=== PATIENT | female | born 1945 | race Caucasian/White ===

== ENCOUNTER → 2016-04-09 | Outpatient (CLI) | payer MEDICARE ==
--- NOTE | 2016-04-10 12:03 | MM ---
Reason for exam: screening (asymptomatic). Last mammogram was performed 1 year ago. History: Patient is postmenopausal, history of other cancer, and had first child at age 31. Benign excisional biopsy of the left breast. Physical Findings: A clinical breast exam by your physician is recommended on an annual basis and results should be correlated with mammographic findings. MG 3D Screening Mammo W/Cad Bilateral CC and MLO view(s) were taken. Prior study comparison: April 06, 2015, right breast MG 3d work up w/cad RT. March 24, 2015, bilateral MG screening mammo w CAD. January 04, 2014, bilateral MG screening mammo w CAD. May 02, 2011, bilateral digital screening mammo w/CAD. There are scattered fibroglandular densities. A subtle asymmetry at an anterior to middle depth right CC view along the retroareolar plane appears more defined from older priors but has no correlate on the MLO view. A 6 month follow up is recommended. ASSESSMENT: Probably benign, BI-RAD 3 RECOMMENDATION: Follow-up diagnostic mammogram of the right breast in 6 months. RICK
== END | disposition home or self-care (01) ==
LOC: RADMAMWWP 13:45
PROVIDERS: ATTEND Family Medicine
DX: Z12.31 Encounter for screening mammogram for malignant neoplasm of breast (principal)
CPT/HCPCS: 77063; G0202

== ENCOUNTER → 2016-06-18 | Outpatient (CLI) | payer MEDICARE ==
--- NOTE | 2016-06-18 12:52 | US ---
EXAMINATION TYPE: US venous doppler duplex LE BI DATE OF EXAM: 06/18/2016 12:43 PM COMPARISON: NONE CLINICAL HISTORY: M79.662,M79.661Pain And R22.42,R22.41 Swelling. Right leg swelling, left ankle pain , no h/o dvt SIDE PERFORMED: Bilateral TECHNIQUE: The lower extremity deep venous system is examined utilizing real time linear array sonog elena with graded compression, doppler sonography and color-flow sonography. VESSELS IMAGED: External Iliac Vein (EIV) Common Femoral Vein Deep Femoral Vein Greater Saphenous Vein * Femoral Vein Popliteal Vein Small Saphenous Vein * Proximal Calf Veins (* superficial vessels) No popliteal fossa lesion is identified. Right Leg: Appears positive for thrombus from distal popiteal up through right proximal femoral vein , no flow seen, non compressible vessel Left Leg: Appears negative for DVT office phone service paging Dr Traore @[phone] IMPRESSION: 1. THIS EXAMINATION IS NEGATIVE FOR DVT WITHIN THE LEFT LEG. 2. THIS EXAMINATION IS POSITIVE FOR DVT EXTENDING FROM THE DEEP FEMORAL VEIN THROUGH TO THE POPLITEAL VEIN.
== END | disposition home or self-care (01) ==
LOC: RADUSWWP 12:09
PROVIDERS: ATTEND Internal Medicine Hematology & Oncology
DX: I82.411 Acute embolism and thrombosis of right femoral vein (principal); I82.431 Acute embolism and thrombosis of right popliteal vein; M79.662 Pain in left lower leg; R22.42 Localized swelling, mass and lump, left lower limb
CPT/HCPCS: 93970

== ENCOUNTER → 2016-11-19 | Outpatient (CLI) | payer MEDICARE ==
--- NOTE | 2016-11-19 14:40 | MM ---
Reason for exam: follow-up at short interval from prior study. Last mammogram was performed 7 months ago. History: Patient is postmenopausal, has history of other cancer at age 69, and had first child at age 31. Benign excisional biopsy of the left breast. Physical Findings: Nurse did not find any significant physical abnormalities on exam. MG 3D Diag Mammo W/Cad RT CC, MLO, and XCCL view(s) were taken of the right breast. Prior study comparison: April 09, 2016, bilateral MG 3d screening mammo w/cad. April 06, 2015, right breast MG 3d work up w/cad RT. There are scattered fibroglandular densities. Finding: There are typically benign round calcifications in the right breast. There is no discrete abnormality. These results were verbally communicated with the patient and result sheet given to the patient on 11/19/16. ASSESSMENT: Benign, BI-RAD 2 RECOMMENDATION: Return to routine screening mammogram schedule for both breasts. Back on schedule for March 2017.
== END | disposition home or self-care (01) ==
LOC: RADMAMWWP 13:33
PROVIDERS: ATTEND Family Medicine
DX: R92.8 Other abnormal and inconclusive findings on diagnostic imaging of breast (principal)
CPT/HCPCS: G0206; G0279

== ENCOUNTER 2016-12-26 07:50 | Day surgery (SDC) | payer MEDICARE ==
[2016-12-25 10:07] VITALS: BMI 48.4
[2016-12-26 08:38] VITALS: TEMP 97.8
[2016-12-26] MEDS: LACTATED RINGERS 1,000 ML IV SCH ×2 (08:38→08:50)
[2016-12-26] MEDS ORDERED: LIDOCAINE 1% 20 ML VIAL (10MG/ML) FOR IV START INTRADERMA ONE (08:38)
[2016-12-26 08:42] LABS: Glucose,Whole Blood 131 mg/dL (75-99)
[2016-12-26] MEDS ORDERED: PROPOFOL 10 MG/ML 20 ML VIAL IV ONE (08:56)
--- NOTE | 2016-12-26 09:11 | P.PCN ---
Date of Procedure: 12/26/16 Procedure(s) Performed: BRIEF HISTORY: Patient is a 71-year-old pleasant white female, scheduled for an elective colonoscopy as a part of surveillance of colon cancer diagnosed a year ago. She is status post right hemicolectomy followed by chemotherapy. PROCEDURE PERFORMED: Colonoscopy. PREOPERATIVE DIAGNOSIS: History of colon cancer diagnosed 1 year ago. IV sedation per Anesthesia. PROCEDURE: After informed consent was obtained, the patient, was brought into the endoscopy unit. IV sedation was administered by Anesthesia under continuous monitoring. Digital rectal examination was normal. Initially the Olympus CF- 160 flexible video colonoscope was then inserted in the rectum, gradually advanced into the right colon without any difficulty and the ileocolic anastomosis was visualized and appeared normal. The distal ileum appeared normal. The mucosa of ascending colon, transverse colon, descending colon, sigmoid colon, and rectum appeared normal. Retroflexion was performed in the rectum and no lesions were seen. The patient tolerated the procedure well. IMPRESSION: Normal colonoscopy with no evidence of colorectal neoplasia RECOMMENDATIONS: Findings of this examination were discussed with the patient as well as a family. She was advised to have a repeat surveillance colonoscopy in 2 years.
[2016-12-26 09:42] VITALS: BP 137/78; PULSE 59; RESP 18
== END 2016-12-26 09:49 | disposition home or self-care (01) ==
LOC: ORWHC2ENDO 07:50
PROVIDERS: ATTEND Internal Medicine Gastroenterology
DX: Z12.11 Encounter for screening for malignant neoplasm of colon (principal); I10 Essential (primary) hypertension; E78.5 Hyperlipidemia, unspecified; E11.9 Type 2 diabetes mellitus without complications; I48.91 Unspecified atrial fibrillation; Z85.038 Personal history of other malignant neoplasm of large intestine; Z88.1 Allergy status to other antibiotic agents; Z79.84 Long term (current) use of oral hypoglycemic drugs; Z79.01 Long term (current) use of anticoagulants; Z79.899 Other long term (current) drug therapy; Z92.21 Personal history of antineoplastic chemotherapy; Z98.0 Intestinal bypass and anastomosis status; Z90.49 Acquired absence of other specified parts of digestive tract
CPT/HCPCS: G0105; J2704

== ENCOUNTER 2017-09-09 14:51 | Emergency (ER) | payer MEDICARE ==
[2017-09-09 15:38] VITALS: RESP 18; TEMP 98.2
--- NOTE | 2017-09-09 15:51 | ED ---
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 She complained of no loss of consciousness nausea vomiting blurry vision she does complain of pain over the occipital parietal scalp on the left and some left lateral neck pain. She denies a loss of function to the upper or lower extremities. No other modifying factors. MD Complaint: head injury, head pain, other - Related Data Home Medications Medication Instructions Recorded Confirmed Atorvastatin Calcium [Lipitor] 20 mg PO DAILY 12/25/16 09/09/17 Cholecalciferol (Vitamin D3) 2,000 unit PO DAILY 12/25/16 09/09/17 [Vitamin D3] Ferrous Sulfate [Feosol] 325 mg PO DAILY 12/25/16 09/09/17 Losartan/Hydrochlorothiazide 1 tab PO DAILY 12/25/16 09/09/17 [Hyzaar 100-25 Tablet] Pioglitazone [Actos] 30 mg PO DAILY 12/25/16 09/09/17 Rivaroxaban [Xarelto] 20 mg PO DAILY 12/25/16 09/09/17 glipiZIDE [Glucotrol XL] 2.5 mg PO DAILY 12/25/16 09/09/17 metFORMIN HCL 1,000 mg PO DAILY 12/25/16 09/09/17 Thiamine [Vitamin B-1] 50 mg PO DAILY 09/09/17 09/09/17 Allergies/Adverse reactions: Allergies Allergy/AdvReac Type Severity Reaction Status Date / Time mycin antibiotics Allergy Rash/Hives Uncoded 09/09/17 15:38 Review of Systems ROS Statement: Those systems with pertinent positive or pertinent negative responses have been documented in the HPI. ROS Other: All systems not noted in ROS Statement are negative. Past Medical History Past Medical History: Cancer, Diabetes Mellitus, Hyperlipidemia, Hypertension Additional Past Medical History / Comment(s): loose bowel movement,colon CA -Chemo/no radiation History of Any Multi-Drug Resistant Organisms: None Reported Past Surgical History: Back Surgery, Bowel Resection, Section, Orthopedic Surgery Additional Past Surgical History / Comment(s): achilles tendon Past Anesthesia/Blood Transfusion Reactions: No Reported Reaction Past Psychological History: No Psychological Hx Reported Smoking Status: Never smoker Past Alcohol Use History: Rare Past Drug Use History: None Reported - Past Family History Mother Family Medical History: No Reported History Father Family Medical History: Myocardial Infarction ([place]) Sister(s) Additional Family Medical History / Comment(s): heart valve problems General Exam - General Exam Comments Initial Comments: This is a well-developed well-nourished awake alert oriented 3 female she does demonstrate a [place] Coma Scale of 15 Limitations: no limitations General appearance: alert Head exam: Present: normocephalic, other (Tennis palpation over the left parietal occipital scalp no step-off or crepitation no open wound seen. No ecchymosis seen at this time.) Eye exam: Present: normal appearance, PERRL, EOMI. Absent: scleral icterus, conjunctival injection, periorbital swelling ENT exam: Present: normal exam, mucous membranes moist Neck exam: Present: normal inspection, tenderness, full ROM. Absent: meningismus, lymphadenopathy, thyromegaly Respiratory exam: Present: normal lung sounds bilaterally. Absent: respiratory distress, wheezes, rales, rhonchi, stridor Cardiovascular Exam: Present: normal rhythm, bradycardia, normal heart sounds. Absent: systolic murmur, diastolic murmur, rubs, gallop, clicks GI/Abdominal exam: Present: soft, normal bowel sounds. Absent: distended, tenderness, guarding, rebound, rigid Extremities exam: Present: normal inspection, full ROM, normal capillary refill. Absent: tenderness, pedal edema, joint swelling, calf tenderness Back exam: Present: normal inspection Neurological exam: Present: alert, oriented X3, CN II-XII intact Psychiatric exam: Present: normal affect, normal mood Skin exam: Present: warm, dry, intact, normal color. Absent: rash Course Vital Signs 09/09/17 15:33 Temperature 98.2 F Pulse Rate 54 L Respiratory 18 Rate Blood Pressure 154/72 O2 Sat by Pulse 100 Oximetry Medical Decision Making - Medical Decision Making I did discuss findings with the patient and her . Patient does demonstrate scalp contusion and trapezius contusion no further workup is indicated at this time patient will be discharged and instructed use Tylenol which she has a home. Also ice for 24-48 hours. - Radiology Data Radiology results: report reviewed (I did review the imaging and reports no acute findings are seen.), image reviewed Disposition Clinical Impression: Contusion of scalp, Shoulder contusion Disposition: HOME SELF-CARE Condition: Good Additional Instructions: Ice 24-48 hours for 15-20 minutes at a time. [id number] Tylenol for pain. Is patient prescribed a controlled substance at d/c from ED?: No Referrals: Cam Singh MD [Primary Care Provider] - 1-2 days
--- NOTE | 2017-09-09 17:04 | CT ---
EXAMINATION TYPE: CT brain aura ross DATE OF EXAM: 09/09/2017 COMPARISON: None HISTORY: Head and neck pain after injury today. CT DLP: 1806 mGycm Automated exposure control for dose reduction was used. TECHNIQUE: CT scan of the head and cervical spine are performed without contrast. FINDINGS: There is mild cerebral cortical atrophy. There is no mass effect nor midline shift. There is no sign of intracranial hemorrhage. The calvarium is intact. Cervical vertebra have normal alignment. Disc spaces are fairly normal. There is mild spurring of the endplates. Skull base appears intact. IMPRESSION: Head CT scan is normal for age. Minor degenerative disc changes in the cervical spine. No fracture.
[2017-09-09 17:28] VITALS: BP 147/66; PULSE 51
== END 2017-09-09 17:28 | disposition home or self-care (01) ==
LOC: EC 14:51
DX: S00.03XA Contusion of scalp, initial encounter (principal); S40.012A Contusion of left shoulder, initial encounter; E11.9 Type 2 diabetes mellitus without complications; E78.5 Hyperlipidemia, unspecified; I10 Essential (primary) hypertension; Z88.1 Allergy status to other antibiotic agents; Z79.01 Long term (current) use of anticoagulants; Z79.84 Long term (current) use of oral hypoglycemic drugs; Z79.899 Other long term (current) drug therapy; W20.8XXA Other cause of strike by thrown, projected or falling object, initial encounter; Y92.002 Bathroom of unspecified non-institutional (private) residence as the place of occurrence of the external cause
CPT/HCPCS: 70450; 72125; 99283

== ENCOUNTER → 2018-01-24 | Outpatient (CLI) | payer MEDICARE ==
--- NOTE | 2018-01-24 17:34 | CT ---
EXAMINATION TYPE: CT ChestAbdPelvis w con DATE OF EXAM: 01/24/2018 INDICATION: Follow up colon Ca COMPARISON: No prior studies available at this location. CT DLP: 2066.9 mGycm CONTRAST: Performed with Oral Contrast and with IV Contrast, patient injected with 100 mL of Isovue 300. TECHNIQUE: Axial images at 5 mm thick sections. Reconstructed images in the coronal plane. Delayed images through the kidneys. FINDINGS: CT CHEST: Portion of the thyroid visualized is normal. No suspicious lung nodules or focal infiltrates are present. No enlarged mediastinal or hilar adenopathy is evident. The ascending aorta diameter at the level of the main pulmonary artery is 3.2 cm. The main pulmonary artery diameter at the bifurcation is 2.[address] ABDOMEN: Liver: Normal Spleen: Normal Pancreas: Mild atrophy is present. Adrenal glands: There is an enlarged nodule on the right adrenal gland measuring 2.4 cm. Left adrenal gland is normal. Gallbladder: Small gallstone is present. Kidneys: No masses are evident. No hydronephrosis is present. No cysts are present. Delayed images were obtained through the kidneys, which remain unremarkable. Aorta: Vascular calcification is within the aorta. Inferior vena cava: Normal. CT PELVIS: Pelvis is somewhat limited due to patient body habitus. Large periumbilical hernia measuring 5.7 cm is mesenteric fat extending into the periumbilical region s. No loops of bowel are involved. There is been a right hemicolectomy. The anastomosis appears widely patent. There are loops of bowel which are incompletely distended or lack oral contrast limiting their evaluation. Appendix: Surgically absent. Urinary bladder: Decompressed with limited evaluation. Genitourinary structures: Uterus appears normal. Adnexal regions are unremarkable. Osseous structures: No suspicious lytic or sclerotic lesions. Sacroiliac joint degenerative changes a re present. Facet hypertrophy is in the lower lumbar spine. IMPRESSIONS: 1. 2.4 cm right adrenal gland mass. Adenoma and metastasis within the differential. 2. Periumbilical mesenteric fat containing hernia. 3. Cholelithiasis
== END | disposition home or self-care (01) ==
LOC: RADCTMAIN 11:17
PROVIDERS: ATTEND Internal Medicine Hematology & Oncology
DX: K80.20 Calculus of gallbladder without cholecystitis without obstruction (principal); K42.9 Umbilical hernia without obstruction or gangrene; E27.8 Other specified disorders of adrenal gland; C18.0 Malignant neoplasm of cecum
CPT/HCPCS: 82565; 84520; 71260; 74177; 36415; Q9967

== ENCOUNTER → 2019-02-02 | Outpatient (CLI) | payer MEDICARE ==
--- NOTE | 2019-02-02 12:15 | CT ---
EXAMINATION TYPE: CT ChestAbdPelvis w con DATE OF EXAM: 02/02/2019 COMPARISON: 01/24/2018 HISTORY: Colon CA CT DLP: 3131.9 mGycm CONTRAST: CT scan of the chest, abdomen and pelvis is performed with Oral Contrast and with IV Contrast, patien t injected with 80 mL of Isovue 300. CT Chest: LUNGS: The lungs are clear and free of infiltrate or atelectasis. No pulmonary nodule or mass is det ected. No pleural effusion or CT evidence of interstitial lung disease. MEDIASTINUM: Thoracic aorta is of normal caliber. The heart is not enlarged. No evidence for media stinal mass or adenopathy. HILAR STRUCTURES: No evidence for mass. No hilar adenopathy is appreciated. OTHER: No significant abnormality. CONTRAST CT ABDOMEN AND PELVIS FINDINGS: LIVER/GB: Noted are couple of small gallstones within the gallbladder. No space occupying hepatic les ion. Biliary tree is of normal caliber. PANCREAS: No inflammation. No distinct mass. SPLEEN: No splenic enlargement. No lesion seen. ADRENALS: Right adrenal nodule measures 2.6 cm. Left adrenal gland is unremarkable. KIDNEYS/BLADDER: No hydronephrosis. No nephrolithiasis. No distinct renal mass. BOWEL: Partial right hemicolectomy noted. Anastomosis appears within normal limits. No recurrent mass seen. Normal bowel caliber. No inflammation. GENITAL ORGANS: No gross abnormality. LYMPH NODES: No greater than 1cm abdominal or pelvic lymph nodes are appreciated. AORTA: No significant abnormality. OSSEOUS STRUCTURES: Postoperative changes lumbar spine OTHER: No significant additional abnormality is seen. IMPRESSION: 1. Postoperative changes of right hemicolectomy without evidence for recurrent or residual mass. 2. Stable right adrenal nodule likely reflecting an adenoma.
== END ==
LOC: RADCTMAIN 09:10
PROVIDERS: ATTEND Internal Medicine Hematology & Oncology
DX: E27.8 Other specified disorders of adrenal gland (principal); Z90.49 Acquired absence of other specified parts of digestive tract; Z98.890 Other specified postprocedural states
CPT/HCPCS: 82565; 84520; 71260; 74177; 36415; Q9967 ×2

== ENCOUNTER 2019-06-09 06:20 | Emergency (ER) | payer MEDICARE ==
[2019-06-09] MEDS ORDERED: SODIUM CHLORIDE 0.9% 1,000 ML IV STA (06:44)
[2019-06-09] MEDS ORDERED: MORPHINE SULFATE 4 MG/ML SYRINGE IV STA (06:44)
[2019-06-09] MEDS ORDERED: ONDANSETRON 4 MG/2 ML VIAL IVP STA ×2 (06:44→07:25)
--- NOTE | 2019-06-09 06:46 | ED ---
Abdominal Pain HPI - General Chief Complaint: Abdominal Pain Stated Complaint: Abdominal pain Time Seen by Provider: 06/09/19 06:30 Source: patient, family, RN notes reviewed Mode of arrival: ambulatory Limitations: no limitations - History of Present Illness Initial Comments: This is a 73-year-old female presents emergency Department with chief complaint of right-sided flank pain. Patient states the pain started suddenly around 2 AM this morning. Patient states that the pain is intense nothing really makes it feel better or worse at this time she does admit to nausea and had an episode of emesis. She has no complaint of dysuria or hematuria. Patient states that she's had prior colon cancer with resection, chemotherapy for years ago. Jayden t states that she believes she had a kidney stone approximately 10+ years ago. Patient states that she never had any imaging because of pain resolved prior. Patient denies any fevers or chills no chest pain or shortness of breath. - Related Data Home Medications Medication Instructions Recorded Confirmed Atorvastatin Calcium [Lipitor] 20 mg PO DAILY 12/25/16 09/09/17 Cholecalciferol (Vitamin D3) 2,000 unit PO DAILY 12/25/16 09/09/17 [Vitamin D3] Ferrous Sulfate [Feosol] 325 mg PO DAILY 12/25/16 09/09/17 Losartan/Hydrochlorothiazide 1 tab PO DAILY 12/25/16 09/09/17 [Hyzaar 100-25 Tablet] Pioglitazone [Actos] 30 mg PO DAILY 12/25/16 09/09/17 Rivaroxaban [Xarelto] 20 mg PO DAILY 12/25/16 09/09/17 glipiZIDE [Glucotrol XL] 2.5 mg PO DAILY 12/25/16 09/09/17 metFORMIN HCL 1,000 mg PO DAILY 12/25/16 09/09/17 Thiamine [Vitamin B-1] 50 mg PO DAILY 09/09/17 09/09/17 Previous Rx's Medication Instructions Recorded Cephalexin [Keflex] 500 mg PO Q8HR #21 cap 06/09/19 Ondansetron Odt [Zofran Odt] 4 mg PO Q8HR PRN #14 tab 06/09/19 Tamsulosin [Flomax] 0.4 mg PO DAILY #7 cap 06/09/19 Allergies Allergy/AdvReac Type Severity Reaction Status Date / Time mycin antibiotics Allergy Rash/Hives Uncoded 09/09/17 15:38 Review of Systems ROS Statement: Those systems with pertinent positive or pertinent negative responses have been documented in the HPI. ROS Other: All systems not noted in ROS Statement are negative. Past Medical History Past Medical History: Cancer, Diabetes Mellitus, Hyperlipidemia, Hypertension Additional Past Medical History / Comment(s): loose bowel movement,colon CA 67-48-87-Chemo/no radiation History of Any Multi-Drug Resistant Organisms: None Reported Past Surgical History: Back Surgery, Bowel Resection, Section, Orthopedic Surgery Additional Past Surgical History / Comment(s): achilles tendon Past Anesthesia/Blood Transfusion Reactions: No Reported Reaction Past Psychological History: No Psychological Hx Reported Smoking Status: Never smoker Past Alcohol Use History: Rare Past Drug Use History: None Reported - Past Family History Mother Family Medical History: No Reported History Father Family Medical History: Myocardial Infarction ([place]) Sister(s) Additional Family Medical History / Comment(s): heart valve problems General Exam Limitations: no limitations General appearance: alert, in no apparent distress Head exam: Present: atraumatic, normocephalic, normal inspection Eye exam: Present: normal appearance, PERRL, EOMI. Absent: scleral icterus, con junctival injection, periorbital swelling Neck exam: Present: normal inspection. Absent: tenderness, meningismus, lymphadenopathy Respiratory exam: Present: normal lung sounds bilaterally. Absent: respiratory distress, wheezes, rales, rhonchi, stridor Cardiovascular Exam: Present: regular rate, normal rhythm, normal heart sounds. Absent: systolic murmur, diastolic murmur, rubs, gallop, clicks GI/Abdominal exam: Present: soft, tenderness (Mild right-sided), normal bowel sounds. Absent: distended, guarding, rebound, rigid Neurological exam: Present: alert, oriented X3, CN II-XII intact Skin exam: Present: warm, dry, intact, normal color. Absent: rash Course Vital Signs 06/09/19 06:26 Temperature 97.6 F Pulse Rate 50 L Respiratory 18 Rate Blood Pressure 156/66 O2 Sat by Pulse 98 Oximetry Medical Decision Making - Medical Decision Making 73-year-old female presents emergency from for flank pain. Patient's found to have 3 mm ureteral calculi. Patient pain is improved at this time. She was updated on CT results. Patient found to have some noted to be seizing a urinalysis was given Rocephin emergency department. Patient is afebrile no leukocytosis. Patient we discharged on antibiotics, antiemetics, pain control and Flomax. She'll follow-up with urology. Return parameters discussed. - Lab Data Result diagrams: 06/09/19 07:15 06/09/19 07:15 Lab Results 06/09/19 06/09/19 06/09/19 Range/Units 06:34 07:15 07:15 WBC 9.7 (3.8-10.6) k/uL RBC 4.12 (3.80-5.40) m/uL Hgb 11.9 (11.4-16.0) gm/dL Hct 39.1 (34.0-46.0) % MCV 94.9 (80.0-100.0) fL MCH 28.9 (25.0-35.0) pg MCHC 30.4 L (31.0-37.0) g/dL RDW 14.1 (11.5-15.5) % Plt Count 195 (150-450) k/uL Neutrophils % 82 % Lymphocytes % 11 % Monocytes % 5 % Eosinophils % 1 % Basophils % 0 % Neutrophils # 8.0 H (1.3-7.7) k/uL Lymphocytes # 1.1 (1.0-4.8) k/uL Monocytes # 0.5 (0-1.0) k/uL Eosinophils # 0.1 (0-0.7) k/uL Basophils # 0.0 (0-0.2) k/uL Sodium 139 (137-145) mmol/L Potassium 4.1 (3.5-5.1) mmol/L Chloride 107 (98-107) mmol/L Carbon Dioxide 22 (22-30) mmol/L Anion Gap 10 mmol/L BUN 29 H (7-17) mg/dL Creatinine 1.10 H (0.52-1.04) mg/dL Est GFR (CKD-EPI)AfAm 57 (>60 ml/min/1.73 sqM) Est GFR (CKD-EPI)NonAf 50 (>60 ml/min/1.73 sqM) Glucose 203 H (74-99) mg/dL Calcium 9.0 (8.4-10.2) mg/dL Total Bilirubin 0.6 (0.2-1.3) mg/dL AST 16 (14-36) U/L ALT 13 (4-34) U/L Alkaline Phosphatase 76 (38-126) U/L Total Protein 6.7 (6.3-8.2) g/dL Albumin 3.8 (3.5-5.0) g/dL Amylase 52 (30-110) U/L Lipase 116 (23-300) U/L Urine Color Dark Red Urine Appearance Bloody H (Clear) Urine RBC >182 H (0-5) /hpf Urine WBC >182 H (0-5) /hpf Urine WBC Clumps Moderate H (None) /hpf Urine Bacteria Many H (None) /hpf Urine Yeast (Budding) Moderate H (None) /hpf Disposition Clinical Impression: Right ureteral calculus, UTI (urinary tract infection) Disposition: HOME SELF-CARE Condition: Stable Instructions (If sedation given, give patient instructions): Kidney Stones (ED) Additional Instructions: Please follow up with urology.Please return to the Emergency Department if symptoms worsen or any other concerns. Prescriptions: Tamsulosin [Flomax] 0.4 mg PO DAILY #7 cap Cephalexin [Keflex] 500 mg PO Q8HR #21 cap Ondansetron Odt [Zofran Odt] 4 mg PO Q8HR PRN #14 tab PRN Reason: Nausea Is patient prescribed a controlled substance at d/c from ED?: No Referrals: Cam Singh MD [Primary Care Provider] - 1-2 days Regis Erazo MD [STAFF PHYSICIAN] - 1-2 days Time of Disposition: 08:13
--- NOTE | 2019-06-09 07:21 | CT ---
EXAMINATION TYPE: CT abdomen pelvis wo con DATE OF EXAM: 06/09/2019 COMPARISON: 02/02/2019 INDICATION: Rt sided pain DLP: 1614 mGycm, Automated exposure control for dose reduction was used. CONTRAST: 0 mL of Isovue 300. Study performed without Oral Contrast TECHNIQUE: Axial images were obtained from above the diaphragm to the pubic rami in the axial plane a t 5 mm thick sections. Reconstructed images are reviewed on the computer in the coronal plane. FINDINGS: Limited CT sections are obtained the lung bases. Some minimal infiltrate or atelectasis may be withi n the lingula.. CT ABDOMEN: Liver: Normal Spleen: Normal Pancreas: Slightly atrophic. Adrenal glands: Right adrenal gland is thickened on the superior limb measuring 2.2 cm. Left adrenal gland is normal. This can be evaluated with CT with contrast or MRI. Differential diagnosis could in clude adenoma and metastatic disease. Gallbladder: Gallstones are present. Kidneys: No masses are evident. No hydronephrosis is present. No cysts are present. Punctate calci fication within the superior posterior right kidney measuring 0.3 cm previous is nonobstructing. Righ t kidney is larger than the left kidney. There may be some mild right hydronephrosis. Very faint 0.3 similar calcification may be within the proximal right ureter. The distal ureter is unremarkable Aorta: Vascular calcification is within the aorta. Inferior vena cava: Normal. CT PELVIS: There is a large anterior abdominal wall hernia containing mesenteric fat in the periumbil ical region. Opening is 5.2 cm but does not contain any loops of bowel. Appears be a right hemicolectomy. The anastomosis is within the midabdomen. Study is without oral con trast limiting bowel evaluation. Mild diverticulosis without diverticulitis is within the sigmoid col on. Appendix: Not visualized. Urinary bladder: Normal , decompressed with some limited evaluation. Genitourinary structures: Uterus and adnexa appear normal. No free fluid is within the pelvis. Osseous structures: No suspicious lytic or sclerotic lesions. IMPRESSIONS: 1. 0.3 cm obstructing proximal right ureteral stone with mild right hydronephrosis. 2. An additional 0.3 cm nonobstructing renal stones present on the right. 3. Postsurgical changes within the bowel. 4. Nodule in right adrenal gland measuring 2.2 cm. This can be evaluated with CT with contrast or MRI .
[2019-06-09] MEDS ORDERED: KETOROLAC 30 MG/ML 1 ML VIAL IVP STA (07:25)
[2019-06-09 07:32] LABS: Bacteria,Urine Many /hpf; Budding Yeast,Urine Moderate /hpf
[2019-06-09 07:33] LABS: Appearance,Urine Bloody (Clear); Color,Urine Dark Red
[2019-06-09 07:34] LABS: RBC,Urine >182 /hpf (0-5); WBC,Urine >182 /hpf (0-5)
[2019-06-09] MEDS ORDERED: cefTRIAXone IN SWFI 1,000 MG/10 ML SYRINGE IVP STA (07:37)
[2019-06-09 07:43] LABS: Basophils % (A) 0 %; Eosinophils # (A) 0.1 k/uL (0-0.7); Eosinophils % (A) 1 %; HCT 39.1 % (34.0-46.0); HGB 11.9 gm/dL (11.4-16.0); Lymphocytes # (A) 1.1 k/uL (1.0-4.8); Lymphocytes % (A) 11 %; MCH 28.9 pg (25.0-35.0); MCHC 30.4 g/dL (31.0-37.0); MCV 94.9 fL (80.0-100.0); Mean Platelet Volume 8.8; Monocytes # (A) 0.5 k/uL (0-1.0); Monocytes % (A) 5 %; Neutrophils % (A) 82 %; Platelet Count 195 k/uL (150-450); RBC 4.12 m/uL (3.80-5.40); RDW 14.1 % (11.5-15.5); WBC 9.7 k/uL (3.8-10.6)
[2019-06-09 07:51] LABS: Albumin 3.8 g/dL (3.5-5.0); Potassium 4.1 mmol/L (3.5-5.1); Total Bilirubin 0.6 mg/dL (0.2-1.3); Total Protein 6.7 g/dL (6.3-8.2)
[2019-06-09] MEDS ORDERED: ACET/COD 300 MG/30 MG STARTER PACK 6 TAB BTL PO STA (08:11)
[2019-06-09 08:33] VITALS: BP 121/53; PULSE 56; RESP 16; TEMP 98
== END 2019-06-09 08:22 | disposition home or self-care (01) ==
LOC: EC 06:20
DX: N39.0 Urinary tract infection, site not specified (principal); N20.1 Calculus of ureter; E11.9 Type 2 diabetes mellitus without complications; E78.5 Hyperlipidemia, unspecified; I10 Essential (primary) hypertension; Z79.01 Long term (current) use of anticoagulants; Z79.84 Long term (current) use of oral hypoglycemic drugs; Z79.899 Other long term (current) drug therapy; Z88.1 Allergy status to other antibiotic agents; Z85.038 Personal history of other malignant neoplasm of large intestine; Z92.21 Personal history of antineoplastic chemotherapy; Z90.49 Acquired absence of other specified parts of digestive tract
CPT/HCPCS: 36415; 80053; 82150; 83690; 85025; 81001; 87086; 74176; 99284; 96374; 96375 ×3; 96376; 96361; J2270; J2405; J0696; J1885

== ENCOUNTER 2019-12-12 16:04 | Emergency (ER) | payer MEDICARE ==
[2019-12-12] MEDS ORDERED: SODIUM CHLORIDE 0.9% 1,000 ML IV STA (16:40)
--- NOTE | 2019-12-12 17:01 | ED ---
General Adult HPI - General Chief complaint: Urogenital Stated complaint: hematuria Time Seen by Provider: 12/12/19 16:19 Source: patient, RN notes reviewed Mode of arrival: ambulatory Limitations: no limitations - History of Present Illness Initial comments: 74-year-old female with a past medical history of colon cancer with last chemo treatment in 2016, diabetes mellitus, hyperlipidemia, hypertension, nephrolithiasis presents to the emergency room for a chief complaint of hematuria. Patient reports that she has had blood in her urine for one day. She notices this morning while going to the bathroom. Patient reports that she does take xarelto for a history of blood clots after chemo treatments. Patient denies any abdominal or back pain. Patient denies dysuria. Denies fevers or chills.Patient has no other complaints at this time including shortness of breath, chest pain, abdominal pain, nausea or vomiting, headache, or visual changes. - Related Data Home Medications Medication Instructions Recorded Confirmed Atorvastatin Calcium [Lipitor] 20 mg PO DAILY 12/25/16 09/09/17 Cholecalciferol (Vitamin D3) 2,000 unit PO DAILY 12/25/16 09/09/17 [Vitamin D3] Ferrous Sulfate [Feosol] 325 mg PO DAILY 12/25/16 09/09/17 Losartan/Hydrochlorothiazide 1 tab PO DAILY 12/25/16 09/09/17 [Hyzaar 100-25 Tablet] Pioglitazone [Actos] 30 mg PO DAILY 12/25/16 09/09/17 Rivaroxaban [Xarelto] 20 mg PO DAILY 12/25/16 09/09/17 glipiZIDE [Glucotrol XL] 2.5 mg PO DAILY 12/25/16 09/09/17 metFORMIN HCL 1,000 mg PO DAILY 12/25/16 09/09/17 Thiamine [Vitamin B-1] 50 mg PO DAILY 09/09/17 09/09/17 Previous Rx's Medication Instructions Recorded Cephalexin [Keflex] 500 mg PO Q8HR #21 cap 06/09/19 Ondansetron Odt [Zofran Odt] 4 mg PO Q8HR PRN #14 tab 06/09/19 Tamsulosin [Flomax] 0.4 mg PO DAILY #7 cap 06/09/19 Cephalexin [Keflex] 500 mg PO BID 7 Days #14 cap 12/12/19 Allergies Allergy/AdvReac Type Severity Reaction Status Date / Time mycin antibiotics Allergy Rash/Hives Uncoded 12/12/19 16:16 Review of Systems ROS Statement: Those systems with pertinent positive or pertinent negative responses have been documented in the HPI. ROS Other: All systems not noted in ROS Statement are negative. Past Medical History Past Medical History: Cancer, Diabetes Mellitus, Hyperlipidemia, Hypertension Additional Past Medical History / Comment(s): loose bowel movement,colon CA 12-16-15-Chemo/no radiation History of Any Multi-Drug Resistant Organisms: None Reported Past Surgical History: Back Surgery, Bowel Resection, Section, Ortho pedic Surgery Additional Past Surgical History / Comment(s): achilles tendon Past Anesthesia/Blood Transfusion Reactions: No Reported Reaction Past Psychological History: No Psychological Hx Reported Smoking Status: Never smoker Past Alcohol Use History: Rare Past Drug Use History: None Reported - Past Family History Mother Family Medical History: No Reported History Father Family Medical History: Myocardial Infarction ([place]) Sister(s) Additional Family Medical History / Comment(s): heart valve problems General Exam Limitations: no limitations General appearance: alert, in no apparent distress Head exam: Present: atraumatic, normocephalic, normal inspection Eye exam: Present: normal appearance, PERRL, EOMI. Absent: scleral icterus, conjunctival injection, periorbital swelling ENT exam: Present: normal exam, mucous membranes moist Neck exam: Present: normal inspection, full ROM. Absent: tenderness, meningismus, lymphadenopathy Respiratory exam: Present: normal lung sounds bilaterally. Absent: respiratory distress, wheezes, rales, rhonchi, stridor Cardiovascular Exam: Present: regular rate, normal rhythm, normal heart sounds. Absent: systolic murmur, diastolic murmur, rubs, gallop, clicks GI/Abdominal exam: Present: soft, normal bowel sounds. Absent: distended, tenderness, guarding, rebound, rigid Back exam: Absent: CVA tenderness (R), CVA tenderness (L) Neurological exam: Present: alert Course Vital Signs 12/12/19 12/12/19 16:09 18:23 Temperature 98.0 F 98.2 F Pulse Rate 66 71 Respiratory 20 18 Rate Blood Pressure 168/68 152/61 O2 Sat by Pulse 99 98 Oximetry Medical Decision Making - Medical Decision Making Vitals are stable. CBC unremarkable. CMP did show evidence of dehydration, patient was given fluids. Urinalysis does show mahsa hematuria. Patient does have 25 white cells and will be treated for possible urinary tract infection. CT abdomen and pelvis was unremarkable. No adverse change compared to old exam. However I did recommend urology follow-up for possible cystoscopy. Patient takes Xarelto for history of DVT 3 years ago after chemotherapy. I did recommend she hold this for 2 days and resume on Saturday. Patient already took dose today. I recommend that she follows up with primary care early in the week as well.I discussed this case with attending Dr. Park who agrees with this assessment and treatment plan. - Lab Data Result diagrams: 12/12/19 16:51 12/12/19 16:51 Lab Results 12/12/19 12/12/19 12/12/19 Range/Units 16:51 16:51 16:51 WBC 7.1 (3.8-10.6) k/uL RBC 3.90 (3.80-5.40) m/uL Hgb 11.6 (11.4-16.0) gm/dL Hct 36.7 (34.0-46.0) % MCV 94.2 (80.0-100.0) fL MCH 29.9 (25.0-35.0) pg MCHC 31.8 (31.0-37.0) g/dL RDW 13.8 (11.5-15.5) % Plt Count 184 (150-450) k/uL Neutrophils % 71 % Lymphocytes % 17 % Monocytes % 7 % Eosinophils % 2 % Basophils % 0 % Neutrophils # 5.0 (1.3-7.7) k/uL Lymphocytes # 1.2 (1.0-4.8) k/uL Monocytes # 0.5 (0-1.0) k/uL Eosinophils # 0.1 (0-0.7) k/uL Basophils # 0.0 (0-0.2) k/uL Hypochromasia Slight PT 10.5 (9.0-12.0) sec INR 1.0 (<1.2) APTT 27.3 (22.0-30.0) sec Sodium 138 (137-145) mmol/L Potassium 3.9 (3.5-5.1) mmol/L Chloride 109 H (98-107) mmol/L Carbon Dioxide 23 (22-30) mmol/L Anion Gap 6 mmol/L BUN 25 H (7-17) mg/dL Creatinine 0.99 (0.52-1.04) mg/dL Est GFR (CKD-EPI)AfAm 65 (>60 ml/min/1.73 sqM) Est GFR (CKD-EPI)NonAf 56 (>60 ml/min/1.73 sqM) Glucose 134 H (74-99) mg/dL Calcium 9.0 (8.4-10.2) mg/dL Total Bilirubin 0.7 (0.2-1.3) mg/dL AST 19 (14-36) U/L ALT 14 (4-34) U/L Alkaline Phosphatase 70 (38-126) U/L Total Protein 6.5 (6.3-8.2) g/dL Albumin 3.7 (3.5-5.0) g/dL Urine Color Urine Appearance (Clear) Urine pH (5.0-8.0) Ur Specific [place] (1.001-1.035) Urine Protein (Negative) Urine Glucose (UA) (Negative) Urine Ketones (Negative) Urine Blood (Negative) Urine Nitrite (Negative) Urine Bilirubin (Negative) Urine Urobilinogen (<2.0) mg/dL Ur Leukocyte Esterase (Negative) Urine RBC (0-5) /hpf Urine WBC (0-5) /hpf Hyaline Casts (0-2) /lpf Urine Mucus (None) /hpf 12/11/20 Range/Units 16:51 WBC (3.8-10.6) k/uL RBC (3.80-5.40) m/uL Hgb (11.4-16.0) gm/dL Hct (34.0-46.0) % MCV (80.0-100.0) fL MCH (25.0-35.0) pg MCHC (31.0-37.0) g/dL RDW (11.5-15.5) % Plt Count (150-450) k/uL Neutrophils % % Lymphocytes % % Monocytes % % Eosinophils % % Basophils % % Neutrophils # (1.3-7.7) k/uL Lymphocytes # (1.0-4.8) k/uL Monocytes # (0-1.0) k/uL Eosinophils # (0-0.7) k/uL Basophils # (0-0.2) k/uL Hypochromasia PT (9.0-12.0) sec INR (<1.2) APTT (22.0-30.0) sec Sodium (137-145) mmol/L Potassium (3.5-5.1) mmol/L Chloride (98-107) mmol/L Carbon Dioxide (22-30) mmol/L Anion Gap mmol/L BUN (7-17) mg/dL Creatinine (0.52-1.04) mg/dL Est GFR (CKD-EPI)AfAm (>60 ml/min/1.73 sqM) Est GFR (CKD-EPI)NonAf (>60 ml/min/1.73 sqM) Glucose (74-99) mg/dL Calcium (8.4-10.2) mg/dL Total Bilirubin (0.2-1.3) mg/dL AST (14-36) U/L ALT (4-34) U/L Alkaline Phosphatase (38-126) U/L Total Protein (6.3-8.2) g/dL Albumin (3.5-5.0) g/dL Urine Color Red Urine Appearance Turbid H (Clear) Urine pH 5.5 (5.0-8.0) Ur Specific [place] 1.019 (1.001-1.035) Urine Protein 2+ H (Negative) Urine Glucose (UA) Negative (Negative) Urine Ketones Negative (Negative) Urine Blood Large H (Negative) Urine Nitrite Negative (Negative) Urine Bilirubin Negative (Negative) Urine Urobilinogen <2.0 (<2.0) mg/dL Ur Leukocyte Esterase Small H (Negative) Urine RBC >182 H (0-5) /hpf Urine WBC 25 H (0-5) /hpf Hyaline Casts 30 H (0-2) /lpf Urine Mucus Rare H (None) /hpf Disposition Clinical Impression: Hematuria Disposition: HOME SELF-CARE Condition: Good Instructions (If sedation given, give patient instructions): Hematuria (ED) Additional Instructions: Please take antibiotic as directed. Please hold Xarelto Saturday and Saturday, resume Saturday. Please follow-up with your primary care provider. You should also follow up with urology, referral was given. If you're having worsening symptoms return to the emergency room. Prescriptions: Cephalexin [Keflex] 500 mg PO BID 7 Days #14 cap Is patient prescribed a controlled substance at d/c from ED?: No Referrals: Cam Singh MD [Primary Care Provider] - 1-2 days Parminder Santiago MD [STAFF PHYSICIAN] - 1-2 days Time of Disposition: 18:23
[2019-12-12 17:29] LABS: Basophils % (A) 0 %; Eosinophils # (A) 0.1 k/uL (0-0.7); Eosinophils % (A) 2 %; HCT 36.7 % (34.0-46.0); HGB 11.6 gm/dL (11.4-16.0); Hypochromasia Slight; Lymphocytes # (A) 1.2 k/uL (1.0-4.8); Lymphocytes % (A) 17 %; MCH 29.9 pg (25.0-35.0); MCHC 31.8 g/dL (31.0-37.0); MCV 94.2 fL (80.0-100.0); Mean Platelet Volume 8.1; Monocytes # (A) 0.5 k/uL (0-1.0); Monocytes % (A) 7 %; Neutrophils % (A) 71 %; Platelet Count 184 k/uL (150-450); RDW 13.8 % (11.5-15.5); WBC 7.1 k/uL (3.8-10.6)
[2019-12-12 17:34] LABS: Appearance,Urine Turbid (Clear); Bilirubin,Urine Negative (Negative); Blood,Urine Large (Negative); Color,Urine Red; Glucose,Urine (UA) Negative (Negative); Hyaline Casts,Urine 30 /lpf (0-2); Ketones,Urine Negative (Negative); Leukocyte Esterase,Urine Small (Negative); Mucus,Urine Rare /hpf; Nitrite,Urine Negative (Negative); PH, Urine 5.5 (5.0-8.0); Protein,Urine 2+ (Negative); RBC,Urine >182 /hpf (0-5); Specific Gravity,Urine 1.019 (1.001-1.035); Urobilinogen,Urine <2.0 mg/dL (<2.0); WBC,Urine 25 /hpf (0-5)
[2019-12-12 17:38] LABS: Partial Thromboplastin Time 27.3 sec (22.0-30.0); Prothrombin Time 10.5 sec (9.0-12.0)
--- NOTE | 2019-12-12 17:39 | CT ---
EXAMINATION TYPE: CT abdomen pelvis wo con DATE OF EXAM: 12/12/2019 COMPARISON: 06/09/2019 HISTORY: Hematuria. Hx colon ca CT DLP: 1975.2 mGycm Automated exposure control for dose reduction was used. There is no evidence of pleural effusion. Lung bases are clear of consolidation. Heart appears normal . There is small calcified gallstone. Liver shows no focal defect. The bile ducts are not dilated. Sple en is intact. There is no evidence of pancreatic mass. Stomach is intact. There is no adrenal mass. Kidneys have normal size. There is no hydronephrosis. Ureters are not dilat ed. There is no retroperitoneal adenopathy. Bladder distends smoothly. There is no inguinal hernia. T here is no free fluid in the pelvis. Uterus is anteverted. There is no evidence of a pelvic mass. There is no ascites. There is no free air. There is no evidence of bowel obstruction. There is large bowel surgery noted. There is broad-based umbilical hernia that contains fat. Unchanged. Lumbar vertebra have normal alignment. There is no compression fracture. There is laminectomy defect in the lower lumbar spine. The bony pelvis is intact. Hip joints are intact. IMPRESSION: Previous intestinal surgery. No bowel obstruction. Cholelithiasis. No adverse change compared to old exam. I do not see a cause for hematuria.
[2019-12-12 17:43] LABS: Albumin 3.7 g/dL (3.5-5.0); Potassium 3.9 mmol/L (3.5-5.1); Total Bilirubin 0.7 mg/dL (0.2-1.3)
[2019-12-12 17:57] LABS: Total Protein 6.5 g/dL (6.3-8.2)
[2019-12-12 18:24] VITALS: BP 152/61; PULSE 71; RESP 18; TEMP 98.2
[2019-12-12] MEDS ORDERED: CEPHALEXIN 500MG STARTER PACK 4 CAP BTL PO STA (18:28)
== END 2019-12-12 18:35 | disposition home or self-care (01) ==
LOC: EC 16:04
DX: R31.9 Hematuria, unspecified (principal); E86.0 Dehydration; I10 Essential (primary) hypertension; E11.9 Type 2 diabetes mellitus without complications; E78.5 Hyperlipidemia, unspecified; Z79.84 Long term (current) use of oral hypoglycemic drugs; Z79.899 Other long term (current) drug therapy; Z79.01 Long term (current) use of anticoagulants; Z88.1 Allergy status to other antibiotic agents; Z86.718 Personal history of other venous thrombosis and embolism; Z85.038 Personal history of other malignant neoplasm of large intestine; Z87.442 Personal history of urinary calculi; Z92.21 Personal history of antineoplastic chemotherapy
CPT/HCPCS: 36415; 74176; 80053; 81001; 85025; 85610; 85730; 87086; 96360; 99284

== ENCOUNTER 2019-12-26 09:58 | Emergency (ER) | payer MEDICARE ==
[2019-12-26 10:06] VITALS: RESP 18; TEMP 98.2
[2019-12-26] MEDS ORDERED: SODIUM CHLORIDE 0.9% 1,000 ML IV STA (10:13)
[2019-12-26] MEDS ORDERED: KETOROLAC 15 MG/ML 1 ML VIAL IVP STA (10:25)
[2019-12-26] MEDS ORDERED: ONDANSETRON 4 MG/2 ML VIAL IVP STA (10:25)
--- NOTE | 2019-12-26 10:28 | ED ---
Abdominal Pain HPI - General Chief Complaint: Abdominal Pain Stated Complaint: L Abd Pain Time Seen by Provider: 12/26/19 10:13 Source: patient Mode of arrival: ambulatory Limitations: no limitations - History of Present Illness Initial Comments: 74-year-old female history of colon cancer in remission, kidney stones currently on xarelto for a DVT that occurred after initial diagnosis of cancer presenting today for chief complaint of the left side pain. Patient states this morning after eating developed left side pain. States comes and goes in intensity and when it is at its peak she dry heaves, no vomiting, no hematemesis. Patient states she is cracked and diarrhea no changes she denies fevers denies dysuria urgency frequency. Patient states a week ago she had hematuria they started her on Keflex and scheduled a cystoscopy as she has no obvious kidney stone at that time on imaging studies. patient denies constipation, upper abdominal pain, chest pain, shortness of breath or indigestion. Patient states the pain radiates to the left side of the back. Patient denies additional complaints. She appears nontoxic on arrival. - Related Data Home Medications Medication Instructions Recorded Confirmed Atorvastatin Calcium [Lipitor] 20 mg PO DAILY 12/25/16 09/09/17 Cholecalciferol (Vitamin D3) 2,000 unit PO DAILY 12/25/16 09/09/17 [Vitamin D3] Ferrous Sulfate [Feosol] 325 mg PO DAILY 12/25/16 09/09/17 Losartan/Hydrochlorothiazide 1 tab PO DAILY 12/25/16 09/09/17 [Hyzaar 100-25 Tablet] Pioglitazone [Actos] 30 mg PO DAILY 12/25/16 09/09/17 Rivaroxaban [Xarelto] 20 mg PO DAILY 12/25/16 09/09/17 glipiZIDE [Glucotrol XL] 2.5 mg PO DAILY 12/25/16 09/09/17 metFORMIN HCL 1,000 mg PO DAILY 12/25/16 09/09/17 Thiamine [Vitamin B-1] 50 mg PO DAILY 09/09/17 09/09/17 Previous Rx's Medication Instructions Recorded Cephalexin [Keflex] 500 mg PO Q8HR #21 cap 06/09/19 Ondansetron Odt [Zofran Odt] 4 mg PO Q8HR PRN #14 tab 06/09/19 Tamsulosin [Flomax] 0.4 mg PO DAILY #7 cap 06/09/19 Cephalexin [Keflex] 500 mg PO BID 7 Days #14 cap 12/12/19 Sulfamethox-Tmp 800-160Mg [Bactrim 1 tab PO Q12HR 7 Days #14 tab 12/26/19 DS 800-160 mg] Allergies Allergy/AdvReac Type Severity Reaction Status Date / Time mycin antibiotics Allergy Rash/Hives Uncoded 12/26/19 10:06 Review of Systems ROS Statement: Those systems with pertinent positive or pertinent negative responses have been documented in the HPI. ROS Other: All systems not noted in ROS Statement are negative. Past Medical History Past Medical History: Cancer, Diabetes Mellitus, Hyperlipidemia, Hypertension Additional Past Medical History / Comment(s): loose bowel movement,colon CA 12-16-15-Chemo/no radiation History of Any Multi-Drug Resistant Organisms: None Reported Past Surgical History: Back Surgery, Bowel Resection, Section, Orthopedic Surgery Additional Past Surgical History / Comment(s): achilles tendon Past Anesthesia/Blood Transfusion Reactions: No Reported Reaction Past Psychological History: No Psychological Hx Reported Smoking Status: Never smoker Past Alcohol Use History: Rare Past Drug Use History: None Reported - Past Family History Mother Family Medical History: No Reported History Father Family Medical History: Myocardial Infarction ([place]) Sister(s) Additional Family Medical History / Comment(s): heart valve problems General Exam - General Exam Comments Initial Comments: General: The patient is awake and alert, in no distress Eye: Pupils are equal, round and reactive to light, extra-ocular movements are intact. No nystagmus. There is normal conjunctiva bilaterally. No signs of icterus. Neck: The neck is supple, there is no tenderness or JVD. Cardiovascular: There is a regular rate and rhythm. No murmur, rub or gallop is appreciated. Respiratory: Lungs are clear to auscultation, respirations are non-labored, breath sounds are equal. No wheezes, stridor, rales, or rhonchi. Gastrointestinal: Soft, non-distended, minimal to no tenderness to palpation of the LLQ/side of the abdomen, remaining abdomen nontender, abdomen without masses or organomegaly noted. There is no rebound or guarding present. No CVA tenderness. Musculoskeletal: Normal ROM, no tenderness. Strength 5/5. Sensation intact. Radial pulses equal bilaterally 2+. Neurological: A&O x 3. CN II-XII intact grossly, There are no obvious motor or sensory deficits. Coordination appears grossly intact. Speech is normal. Skin: Skin is warm and dry and no rashes or lesions are noted. Psychiatric: Cooperative, appropriate mood & affect, normal judgment. Limitations: no limitations Course Vital Signs 12/26/19 12/26/19 12/26/19 10:03 11:56 13:29 Temperature 98.2 F 98.2 F Pulse Rate 59 L 54 L 53 L Respiratory 18 18 18 Rate Blood Pressure 164/78 129/58 136/56 O2 Sat by Pulse 99 98 99 Oximetry Medical Decision Making - Medical Decision Making CT (-) WBC and RBC in urine. Finsished 1 week of keflex 1 week ago> patient nontoxic in appearance. pain resolved in the ER. Patient urine culture pending. Discussed case with attending and at this time we feel patient is stable for discharge with outpatient urology f/u, new antibiotics-return parameters for fevers, increasing pain, new symptoms. Patient discharged appearing well agreeable to care plan. - Lab Data Result diagrams: 12/26/19 10:38 12/26/19 10:38 Lab Results 12/26/19 12/26/19 12/26/19 Range/Units 10:38 10:38 10:38 WBC 6.8 (3.8-10.6) k/uL RBC 3.94 (3.80-5.40) m/uL Hgb 11.8 (11.4-16.0) gm/dL Hct 37.5 (34.0-46.0) % MCV 95.0 (80.0-100.0) fL MCH 29.8 (25.0-35.0) pg MCHC 31.4 (31.0-37.0) g/dL RDW 13.7 (11.5-15.5) % Plt Count 183 (150-450) k/uL Neutrophils % 78 % Lymphocytes % 12 % Monocytes % 6 % Eosinophils % 2 % Basophils % 1 % Neutrophils # 5.3 (1.3-7.7) k/uL Lymphocytes # 0.8 L (1.0-4.8) k/uL Monocytes # 0.4 (0-1.0) k/uL Eosinophils # 0.1 (0-0.7) k/uL Basophils # 0.1 (0-0.2) k/uL Hypochromasia Slight Sodium 137 (137-145) mmol/L Potassium 3.9 (3.5-5.1) mmol/L Chloride 107 (98-107) mmol/L Carbon Dioxide 22 (22-30) mmol/L Anion Gap 8 mmol/L BUN 27 H (7-17) mg/dL Creatinine 1.11 H (0.52-1.04) mg/dL Est GFR (CKD-EPI)AfAm 56 (>60 ml/min/1.73 sqM) Est GFR (CKD-EPI)NonAf 49 (>60 ml/min/1.73 sqM) Glucose 213 H (74-99) mg/dL Lactic Ac Sepsis Rflx Plasma Lactic Acid Nir (0.7-2.0) mmol/L Calcium 9.0 (8.4-10.2) mg/dL Total Bilirubin 0.8 (0.2-1.3) mg/dL AST 18 (14-36) U/L ALT 14 (4-34) U/L Alkaline Phosphatase 73 (38-126) U/L Total Protein 6.7 (6.3-8.2) g/dL Albumin 3.9 (3.5-5.0) g/dL Amylase 60 (30-110) U/L Lipase 149 (23-300) U/L Urine Color Red Urine Appearance Bloody H (Clear) Urine RBC >182 H (0-5) /hpf Urine WBC 38 H (0-5) /hpf Ur Squamous Epith Cells 3 (0-4) /hpf Urine Bacteria Few H (None) /hpf 12/26/19 12/26/19 Range/Units 10:38 10:58 WBC (3.8-10.6) k/uL RBC (3.80-5.40) m/uL Hgb (11.4-16.0) gm/dL Hct (34.0-46.0) % MCV (80.0-100.0) fL MCH (25.0-35.0) pg MCHC (31.0-37.0) g/dL RDW (11.5-15.5) % Plt Count (150-450) k/uL Neutrophils % % Lymphocytes % % Monocytes % % Eosinophils % % Basophils % % Neutrophils # (1.3-7.7) k/uL Lymphocytes # (1.0-4.8) k/uL Monocytes # (0-1.0) k/uL Eosinophils # (0-0.7) k/uL Basophils # (0-0.2) k/uL Hypochromasia Sodium (137-145) mmol/L Potassium (3.5-5.1) mmol/L Chloride (98-107) mmol/L Carbon Dioxide (22-30) mmol/L Anion Gap mmol/L BUN (7-17) mg/dL Creatinine (0.52-1.04) mg/dL Est GFR (CKD-EPI)AfAm (>60 ml/min/1.73 sqM) Est GFR (CKD-EPI)NonAf (>60 ml/min/1.73 sqM) Glucose (74-99) mg/dL Lactic Ac Sepsis Rflx Y Plasma Lactic Acid Nir 2.6 H* (0.7-2.0) mmol/L Calcium (8.4-10.2) mg/dL Total Bilirubin (0.2-1.3) mg/dL AST (14-36) U/L ALT (4-34) U/L Alkaline Phosphatase (38-126) U/L Total Protein (6.3-8.2) g/dL Albumin (3.5-5.0) g/dL Amylase (30-110) U/L Lipase (23-300) U/L Urine Color Urine Appearance (Clear) Urine RBC (0-5) /hpf Urine WBC (0-5) /hpf Ur Squamous Epith Cells (0-4) /hpf Urine Bacteria (None) /hpf Disposition Clinical Impression: Bacteria in urine, Blood in urine, Left flank pain Disposition: HOME SELF-CARE Condition: Good Instructions (If sedation given, give patient instructions): Urinary Tract Infection in Women (ED) Additional Instructions: Please use medication as discussed. Please follow-up with family doctor in the next 2 days, as well as urology. Please return to emergency room if the symptoms increase or worsen or for any other concerns. Prescriptions: Sulfamethox-Tmp 800-160Mg [Bactrim DS 800-160 mg] 1 tab PO Q12HR 7 Days #14 tab Is patient prescribed a controlled substance at d/c from ED?: No Referrals: Jose A Singh MD [STAFF PHYSICIAN] - 1-2 days Regis Erazo MD [STAFF PHYSICIAN] - 1-2 days Time of Disposition: 13:02
[2019-12-26 10:48] LABS: Basophils # (A) 0.1 k/uL (0-0.2); Basophils % (A) 1 %; Eosinophils # (A) 0.1 k/uL (0-0.7); Eosinophils % (A) 2 %; HCT 37.5 % (34.0-46.0); HGB 11.8 gm/dL (11.4-16.0); Hypochromasia Slight; Lymphocytes # (A) 0.8 k/uL (1.0-4.8); Lymphocytes % (A) 12 %; MCH 29.8 pg (25.0-35.0); MCHC 31.4 g/dL (31.0-37.0); Mean Platelet Volume 8.3; Monocytes # (A) 0.4 k/uL (0-1.0); Monocytes % (A) 6 %; Neutrophils # (A) 5.3 k/uL (1.3-7.7); Neutrophils % (A) 78 %; Platelet Count 183 k/uL (150-450); RBC 3.94 m/uL (3.80-5.40); RDW 13.7 % (11.5-15.5); WBC 6.8 k/uL (3.8-10.6)
[2019-12-26 10:58] LABS: Albumin 3.9 g/dL (3.5-5.0); Potassium 3.9 mmol/L (3.5-5.1); Total Bilirubin 0.8 mg/dL (0.2-1.3); Total Protein 6.7 g/dL (6.3-8.2)
[2019-12-26] MEDS ORDERED: SODIUM CHLORIDE 0.9% 1,000 ML IV ONE (10:58)
[2019-12-26 11:08] LABS: Appearance,Urine Bloody (Clear); Bacteria,Urine Few /hpf; Color,Urine Red; RBC,Urine >182 /hpf (0-5); Squamous Epithelial Cell,Urine 3 /hpf (0-4); WBC,Urine 38 /hpf (0-5)
[2019-12-26] MEDS ORDERED: cefTRIAXone IN SWFI 1,000 MG/10 ML SYRINGE IVP STA (11:27)
--- NOTE | 2019-12-26 12:45 | CT ---
EXAMINATION TYPE: CT abdomen pelvis w con DATE OF EXAM: 12/26/2019 COMPARISON: CT abdomen pelvis 12/12/2019. CT chest 01/24/2018. HISTORY: Lt sided pain, stone vs diverticulitis CT DLP: 2515 mGycm Automated exposure control for dose reduction was used. TECHNIQUE: Helical acquisition of images was performed from the lung bases through the pelvis. CONTRAST: Performed without Oral Contrast and with IV Contrast, patient injected with 100 mL of Isovue 300. FINDINGS: LUNG BASES: 3 mm solid pulmonary nodule of the right lower lobe unchanged versus 01/24/2018, most like ly benign. No pericardial or pleural effusion. LIVER: Normal. BILIARY SYSTEM: No intrahepatic or extrahepatic biliary ductal dilatation. Cholelithiasis. PANCREAS: Normal. SPLEEN: Normal. ADRENALS: Normal. KIDNEYS: No hydronephrosis or hydroureter bilaterally. There is mild nonspecific perinephric strandin g bilaterally. BOWEL: Right hemicolectomy postsurgical changes. No obstruction or thickening. No significant divert icular disease. PERITONEUM: No pneumoperitoneum. No free fluid. Umbilical fat-containing hernia. LYMPH NODES: No lymphadenopathy. PELVIS: Normal. VASCULATURE: No abdominal aortic aneurysm. MUSCULOSKELETAL: Degenerative changes of the spine. Laminectomy changes at L5. IMPRESSION: 1. No acute abdominopelvic process. No urolithiasis. No diverticular disease. 2. Cholelithiasis.
[2019-12-26 13:31] VITALS: BP 136/56; PULSE 53
== END 2019-12-26 13:31 | disposition home or self-care (01) ==
LOC: EC 09:58
DX: R82.71 Bacteriuria (principal); R31.9 Hematuria, unspecified; R10.32 Left lower quadrant pain; R19.7 Diarrhea, unspecified; E11.9 Type 2 diabetes mellitus without complications; E78.5 Hyperlipidemia, unspecified; I10 Essential (primary) hypertension; Z79.01 Long term (current) use of anticoagulants; Z79.84 Long term (current) use of oral hypoglycemic drugs; Z88.1 Allergy status to other antibiotic agents; Z79.899 Other long term (current) drug therapy; Z85.038 Personal history of other malignant neoplasm of large intestine; Z87.442 Personal history of urinary calculi; Z92.21 Personal history of antineoplastic chemotherapy; Z87.19 Personal history of other diseases of the digestive system; Z90.49 Acquired absence of other specified parts of digestive tract
CPT/HCPCS: 36415; 80053; 82150; 83605; 83690; 85025; 81001; 87086; 74177; 99284; 96374; 96375 ×2; 96361 ×3; J2405; J0696; J1885; Q9967

== ENCOUNTER 2020-11-30 11:10 | Emergency (ER) | payer MEDICARE ==
[2020-11-30] MEDS ORDERED: ONDANSETRON 4 MG/2 ML VIAL IVP STA (12:29)
[2020-11-30] MEDS ORDERED: KETOROLAC 15 MG/ML 1 ML VIAL IVP STA (12:29)
[2020-11-30] MEDS ORDERED: SODIUM CHLORIDE 0.9% 1,000 ML IV STA (12:29)
--- NOTE | 2020-11-30 12:37 | ED ---
General Adult HPI - General Chief complaint: Urogenital Stated complaint: Kidney stone Time Seen by Provider: 11/30/20 12:00 Source: patient, RN notes reviewed, old records reviewed Mode of arrival: wheelchair Limitations: no limitations - History of Present Illness Initial comments: This is a 74-year-old female presents emergency department with past medical history significant for kidney stones as well as colon cancer. Patient comes in today complaining of left-sided flank pain. Patient states is indicative of kidney stone she also blood in her urine yesterday. Patient states the pain does come and go. Patient states she has no dysuria. Patient denies any fever chills per patient states she is nauseated but hasn't vomited. Patient denies any chest pain difficulty breathing shortest breath. - Related Data Home Medications Medication Instructions Recorded Confirmed Atorvastatin Calcium [Lipitor] 20 mg PO DAILY 12/25/16 09/09/17 Cholecalciferol (Vitamin D3) 2,000 unit PO DAILY 12/25/16 09/09/17 [Vitamin D3] Ferrous Sulfate [Feosol] 325 mg PO DAILY 12/25/16 09/09/17 Losartan/Hydrochlorothiazide 1 tab PO DAILY 12/25/16 09/09/17 [Hyzaar 100-25 Tablet] Pioglitazone [Actos] 30 mg PO DAILY 12/25/16 09/09/17 Rivaroxaban [Xarelto] 20 mg PO DAILY 12/25/16 09/09/17 glipiZIDE [Glucotrol XL] 2.5 mg PO DAILY 12/25/16 09/09/17 metFORMIN HCL [Glucophage] 1,000 mg PO DAILY 12/25/16 09/09/17 Thiamine [Vitamin B-1] 50 mg PO DAILY 09/09/17 09/09/17 Previous Rx's Medication Instructions Recorded Cephalexin [Keflex] 500 mg PO Q8HR #21 cap 06/09/19 Ondansetron Odt [Zofran Odt] 4 mg PO Q8HR PRN #14 tab 06/09/19 Tamsulosin [Flomax] 0.4 mg PO DAILY #7 cap 06/09/19 Cephalexin [Keflex] 500 mg PO BID 7 Days #14 cap 12/12/19 Sulfamethox-Tmp 800-160Mg [Bactrim 1 tab PO Q12HR 7 Days #14 tab 12/26/19 DS 800-160 mg] Ketorolac [Toradol] 10 mg PO Q6HR #15 tab 11/30/20 Ondansetron [Zofran] 4 mg PO Q8HR PRN #10 tab 11/30/20 Tamsulosin [Flomax] 0.4 mg PO DAILY #10 cap 11/30/20 Allergies Allergy/AdvReac Type Severity Reaction Status Date / Time mycin antibiotics Allergy Rash/Hives Uncoded 11/30/20 11:28 Review of Systems ROS Statement: Those systems with pertinent positive or pertinent negative responses have been documented in the HPI. ROS Other: All systems not noted in ROS Statement are negative. Past Medical History Past Medical History: Cancer, Diabetes Mellitus, Hyperlipidemia, Hypertension Additional Past Medical History / Comment(s): loose bowel movement,colon CA 12-16-15-Chemo/no radiation History of Any Multi-Drug Resistant Organisms: None Reported Past Surgical History: Back Surgery, Bowel Resection, Section, Orthopedic Surgery Additional Past Surgical History / Comment(s): achilles tendon Past Anesthesia/Blood Transfusion Reactions: No Reported Reaction Past Psychological History: No Psychological Hx Reported Smoking Status: Never smoker Past Alcohol Use History: Rare Past Drug Use History: None Reported - Past Family History Mother Family Medical History: No Reported History Father Family Medical History: Myocardial Infarction ([place]) Sister(s) Additional Family Medical History / Comment(s): heart valve problems General Exam - General Exam Comments Initial Comments: GENERAL: Patient is well-developed and well-nourished. Patient is nontoxic and well- hydrated and is in mild distress. ENT: Neck is soft and supple. No significant lymphadenopathy is noted. Oropharynx is clear. Moist mucous membranes. Neck has full range of motion without eliciting any pain. EYES: The sclera were anicteric and conjunctiva were pink and moist. Extraocular movements were intact and pupils were equal round and reactive to light. Eyelids were unremarkable. PULMONARY: Unlabored respirations. Good breath sounds bilaterally. No audible rales rhonchi or wheezing was noted. CARDIOVASCULAR: There is a regular rate and rhythm without any murmurs gallops or rubs. ABDOMEN: Patient is somewhat tender in the left flank. Patient has no CVA tenderness patient has no suprapubic tenderness SKIN: Skin is clear with no lesions or rashes and otherwise unremarkable. NEUROLOGIC: Patient is alert and oriented x3. Cranial nerves II through XII are grossly intact. Motor and sensory are also intact. Normal speech, volume and content. Symmetrical smile. MUSCULOSKELETAL: Normal extremities with adequate strength and full range of motion. No lower extremity swelling or edema. No calf tenderness. LYMPHATICS: No significant lymphadenopathy is noted PSYCHIATRIC: Normal psychiatric evaluation. Limitations: no limitations Course Vital Signs 11/30/20 11:28 Temperature 97.5 F L Pulse Rate 55 L Respiratory 16 Rate Blood Pressure 161/100 O2 Sat by Pulse 98 Oximetry Medical Decision Making - Medical Decision Making CT scan showed a proximal left ureteral stone measuring 7-8 mm. Patient received Toradol and Zofran the emergency department and was feeling better but the pain started to come back so she was given 0.5 of Dilaudid. - Lab Data Result diagrams: 11/30/20 12:50 11/30/20 12:50 Lab Results 11/30/20 11/30/20 11/30/20 Range/Units 11:55 12:50 12:50 WBC 7.7 (3.8-10.6) k/uL RBC 3.80 (3.80-5.40) m/uL Hgb 11.3 L (11.4-16.0) gm/dL Hct 35.6 (34.0-46.0) % MCV 93.7 (80.0-100.0) fL MCH 29.6 (25.0-35.0) pg MCHC 31.6 (31.0-37.0) g/dL RDW 13.7 (11.5-15.5) % Plt Count 173 (150-450) k/uL MPV 8.6 Neutrophils % 78 % Lymphocytes % 12 % Monocytes % 8 % Eosinophils % 1 % Basophils % 0 % Neutrophils # 6.0 (1.3-7.7) k/uL Lymphocytes # 0.9 L (1.0-4.8) k/uL Monocytes # 0.6 (0-1.0) k/uL Eosinophils # 0.1 (0-0.7) k/uL Basophils # 0.0 (0-0.2) k/uL Sodium 137 (137-145) mmol/L Potassium 4.5 (3.5-5.1) mmol/L Chloride 108 H (98-107) mmol/L Carbon Dioxide 22 (22-30) mmol/L Anion Gap 7 mmol/L BUN 26 H (7-17) mg/dL Creatinine 1.65 H (0.52-1.04) mg/dL Est GFR (CKD-EPI)AfAm 35 (>60 ml/min/1.73 sqM) Est GFR (CKD-EPI)NonAf 30 (>60 ml/min/1.73 sqM) Glucose 129 H (74-99) mg/dL Calcium 9.3 (8.4-10.2) mg/dL Total Bilirubin 0.8 (0.2-1.3) mg/dL AST 19 (14-36) U/L ALT 13 (4-34) U/L Alkaline Phosphatase 85 (38-126) U/L Total Protein 6.3 (6.3-8.2) g/dL Albumin 3.6 (3.5-5.0) g/dL Amylase 49 (30-110) U/L Lipase 108 (23-300) U/L Urine Color Colorless Urine Appearance Clear (Clear) Urine pH 5.0 (5.0-8.0) Ur Specific [place] 1.005 (1.001-1.035) Urine Protein Negative (Negative) Urine Glucose (UA) Negative (Negative) Urine Ketones Negative (Negative) Urine Blood Moderate H (Negative) Urine Nitrite Negative (Negative) Urine Bilirubin Negative (Negative) Urine Urobilinogen <2.0 (<2.0) mg/dL Ur Leukocyte Esterase Negative (Negative) Urine RBC 1 (0-5) /hpf Urine WBC <1 (0-5) /hpf Ur Squamous Epith Cells 1 (0-4) /hpf Disposition Clinical Impression: Kidney stone on left side Disposition: HOME SELF-CARE Condition: Good Instructions (If sedation given, give patient instructions): Kidney Stones (ED), How to Strain Your Urine (ED) Prescriptions: Tamsulosin [Flomax] 0.4 mg PO DAILY #10 cap Ketorolac [Toradol] 10 mg PO Q6HR #15 tab Ondansetron [Zofran] 4 mg PO Q8HR PRN #10 tab PRN Reason: Nausea And Vomiting Is patient prescribed a controlled substance at d/c from ED?: No Referrals: Cam Singh MD [Primary Care Provider] - 1-2 days Time of Disposition: 16:00
[2020-11-30 12:38] LABS: Appearance,Urine Clear (Clear); Bilirubin,Urine Negative (Negative); Blood,Urine Moderate (Negative); Color,Urine Colorless; Glucose,Urine (UA) Negative (Negative); Ketones,Urine Negative (Negative); Leukocyte Esterase,Urine Negative (Negative); Nitrite,Urine Negative (Negative); Protein,Urine Negative (Negative); RBC,Urine 1 /hpf (0-5); Specific Gravity,Urine 1.005 (1.001-1.035); Squamous Epithelial Cell,Urine 1 /hpf (0-4); Urobilinogen,Urine <2.0 mg/dL (<2.0); WBC,Urine <1 /hpf (0-5)
[2020-11-30 13:12] LABS: Basophils % (A) 0 %; Eosinophils # (A) 0.1 k/uL (0-0.7); Eosinophils % (A) 1 %; HCT 35.6 % (34.0-46.0); HGB 11.3 gm/dL (11.4-16.0); Lymphocytes # (A) 0.9 k/uL (1.0-4.8); Lymphocytes % (A) 12 %; MCH 29.6 pg (25.0-35.0); MCHC 31.6 g/dL (31.0-37.0); MCV 93.7 fL (80.0-100.0); Mean Platelet Volume 8.6; Monocytes # (A) 0.6 k/uL (0-1.0); Monocytes % (A) 8 %; Neutrophils % (A) 78 %; Platelet Count 173 k/uL (150-450); RDW 13.7 % (11.5-15.5); WBC 7.7 k/uL (3.8-10.6)
[2020-11-30 13:17] LABS: Albumin 3.6 g/dL (3.5-5.0); Calcium 9.3 mg/dL (8.4-10.2); Potassium 4.5 mmol/L (3.5-5.1); Total Bilirubin 0.8 mg/dL (0.2-1.3); Total Protein 6.3 g/dL (6.3-8.2)
--- NOTE | 2020-11-30 13:35 | XR ---
EXAMINATION TYPE: XR KUB DATE OF EXAM: 11/30/2020 COMPARISON: NONE HISTORY: 11/30/2020 TECHNIQUE: One view abdominal series FINDINGS: The osseous structures are intact. The bowel gas pattern is nonspecific. Lung bases are clear. Hype rtrophic change of the spine. Arthropathy of the hips. IMPRESSION: 1. Nonspecific abdomen.
--- NOTE | 2020-11-30 13:43 | CT ---
EXAMINATION TYPE: CT abdomen pelvis wo con DATE OF EXAM: 11/30/2020 COMPARISON: CT 12/26/2019 HISTORY: Abdominal pain CT DLP: 1656 mGycm Automated exposure control for dose reduction was used. TECHNIQUE: Helical acquisition of images from the lung bases through the pelvis. FINDINGS: Lack of intravenous contrast could compromise sensitivity of the gadolinium. There is a sma ll hiatal hernia present. LUNG BASES: No significant abnormality is appreciated. AORTA: No atheromatous changes present. No evident aneurysm.. LIVER/GB: Dependent high density within the gallbladder is consistent with stones, liver shows no mas s. PANCREAS: No significant abnormality is seen. SPLEEN: No significant abnormality is seen. ADRENALS: Dense right adrenal mass is stable measuring approximately 2.9 cm, there is low attenuation , left adrenal gland is normal KIDNEYS: There is mild left-sided hydronephrosis, proximal left ureteral calculus is present measurin g 7 to 8 mm. There is some nonobstructive calculi present at the lower pole of the left kidney which have developed in the interval. No ureteral calcification on the right, no hydronephrosis on the righ t. REPRODUCTIVE ORGANS: No significant abnormality is seen. URINARY BLADDER: No significant abnormality is seen. BOWEL: Scattered diverticular change is noted. Postop changes are also noted to the bowel. FREE AIR: No Free Air is visible. ASCITES: None visible. PELVIC ADENOPATHY: None visualized. RETROPERITONEAL ADENOPATHY: No Retroperitoneal Adenopathy visible. OSSEOUS STRUCTURES: Degenerative disc changes, facet arthropathy noted especially in the lower lumba r spine. IMPRESSION: OBSTRUCTIVE PROXIMAL LEFT RENAL CALCULUS. CHOLELITHIASIS. NONCONTRAST EXAM.
[2020-11-30] MEDS ORDERED: ACET/COD 300 MG/30 MG STARTER PACK 6 TAB BTL PO STA (16:02)
[2020-11-30] MEDS ORDERED: HYDROmorphone 0.5 MG/0.5 ML SYRINGE IVP STA (16:07)
[2020-11-30 16:53] VITALS: BP 150/89; PULSE 58; RESP 18; TEMP 97.7
== END 2020-11-30 16:40 | disposition home or self-care (01) ==
LOC: EC 11:10
DX: N20.0 Calculus of kidney (principal); I10 Essential (primary) hypertension; E78.5 Hyperlipidemia, unspecified; E11.9 Type 2 diabetes mellitus without complications; Z88.1 Allergy status to other antibiotic agents; Z85.038 Personal history of other malignant neoplasm of large intestine
CPT/HCPCS: 99284; 96374; 96375 ×2; 96361; 36415; 80053; 82150; 83690; 85025; 81001; 74018; 74176; J2405; J1885; J1170

== ENCOUNTER 2020-12-05 13:07 | Day surgery (SDC) | payer MEDICARE ==
[2020-12-02 13:53] VITALS: BMI 51.7
[2020-12-05 13:45] LABS: Glucose,Whole Blood 135 mg/dL (75-99)
[2020-12-05] MEDS ORDERED: ONDANSETRON 4 MG/2 ML VIAL ONE (13:49)
[2020-12-05] MEDS ORDERED: LIDOCAINE 1% (10MG/ML) FOR IV START INTRADERMA ONE (13:51)
[2020-12-05] MEDS ORDERED: LACTATED RINGERS 1,000 ML IV ONE (13:51)
[2020-12-05] MEDS ORDERED: DEXAMETHASONE SOD PHOSPHATE 4 MG/ML 1 ML VIAL IV ONE (13:51)
--- NOTE | 2020-12-05 14:59 | P.HPIHPCON ---
History of Present Illness H&P Date: 12/05/20 Chief Complaint: Left-sided ureteral stone This is a 75-year-old female with history of 7 mm left-sided proximal stone. She is symptomatic from her stone. Of note stone is radiolucent. Discussed with her the option of ureteroscopy. Discussed with her the risk which includes but not limited to bleeding, infection, injury to the ureter. Discussed also risk from anesthesia. She understood all the risk and agreed to proceed Consent for Procedure: I have explained the operation/procedure to the patient, including the risks, benefits, side effects, alternative therapies (including not receiving the proposed treatment or service), the likelihood of the patient achieving his/her goals, and potential recuperation problems for the procedure/sedation/analgesia, as well as any blood products, if indicated. I also explained to the patient the risks, benefits and side effects of the alternatives, as well as the risks related to not receiving the proposed procedure, care, treatment, or services. Past Medical History Past Medical History: Cancer, Diabetes Mellitus, Hyperlipidemia, Hypertension Additional Past Medical History / Comment(s): loose bowel movement,colon [place] 12-16-15-Chemo/no radiation, hx kidney stones History of Any Multi-Drug Resistant Organisms: None Reported Past Surgical History: Back Surgery, Bowel Resection, Section, Orthopedic Surgery Additional Past Surgical History / Comment(s): achilles tendon Past Anesthesia/Blood Transfusion Reactions: No Reported Reaction Smoking Status: Never smoker - Past Family History Mother Family Medical History: No Reported History Father Family Medical History: Myocardial Infarction ([place]) Sister(s) Additional Family Medical History / Comment(s): heart valve problems Medications and Allergies Home Medications Medication Instructions Recorded Confirmed Type Atorvastatin Calcium [Lipitor] 20 mg PO DAILY 12/25/16 12/02/20 History Cholecalciferol (Vitamin D3) 2,000 unit PO DAILY 12/25/16 12/02/20 History [Vitamin D3] Ferrous Sulfate [Feosol] 325 mg PO DAILY 12/25/16 12/02/20 History Losartan/Hydrochlorothiazide 1 tab PO DAILY 12/25/16 12/02/20 History [Hyzaar 100-25 Tablet] Pioglitazone [Actos] 30 mg PO DAILY 12/25/16 12/02/20 History Rivaroxaban [Xarelto] 10 mg PO DAILY 12/25/16 12/02/20 History glipiZIDE [Glucotrol XL] 2.5 mg PO DAILY 12/25/16 12/02/20 History metFORMIN HCL [Glucophage] 1,000 mg PO DAILY 12/25/16 12/02/20 History Thiamine [Vitamin B-1] 50 mg PO DAILY 09/09/17 12/02/20 History Ondansetron Odt [Zofran Odt] 4 mg PO Q8HR PRN #14 tab 06/09/19 12/02/20 Rx Ketorolac [Toradol] 10 mg PO Q6HR #15 tab 11/30/20 12/02/20 Rx Tamsulosin [Flomax] 0.4 mg PO DAILY #10 cap 11/30/20 12/02/20 Rx Turmeric Root Extract [Turmeric] 500 mg PO DAILY 12/02/20 12/02/20 History Acetaminophen [Tylenol] 1,000 mg PO ONCE PRN 12/05/20 12/05/20 History Allergies Allergy/AdvReac Type Severity Reaction Status Date / Time mycin antibiotics Allergy Rash/Hives Uncoded 12/05/20 13:29 Surgical - Exam Vital Signs Temp Pulse Resp BP Pulse Ox 97 F L 65 16 185/74 97 12/05/20 13:34 12/05/20 13:34 12/05/20 13:34 12/05/20 13:34 12/05/20 13:34 - General well developed, well nourished, no distress, moderate pain - Eyes PERRL, normal ocular movement - ENT normal nares, normal mucosa - Respiratory normal expansion, normal respiratory effort - Abdomen Abdomen: soft, non tender Results - Labs Abnormal Lab Results - Last 24 Hours (Table) 12/05/20 Range/Units 13:43 POC Glucose (mg/dL) 135 H (75-99) mg/dL Assessment and Plan Assessment: 75 yo female with hx 7 mm left sided ureteral stone -OR for left sided ureteroscopy with holmium laser and stent placement
[2020-12-05] MEDS ORDERED: fentaNYL (PF) 50 MCG/ML 2 ML AMP ONE (15:02)
[2020-12-05] MEDS ORDERED: SUCCINYLCHOLINE CHLORIDE 100 MG/5 ML SYR IV ONE (15:02)
[2020-12-05] MEDS ORDERED: MIDAZOLAM 2 MG/2 ML VIAL ONE (15:02)
[2020-12-05] MEDS ORDERED: LIDOCAINE 1% INJ 10MG/ML (20 ML MDV) ONE (15:02)
[2020-12-05] MEDS ORDERED: PROPOFOL 10 MG/ML 20 ML VIAL IV ONE (15:02)
[2020-12-05] MEDS ORDERED: GLYCOPYRROLATE 0.2 MG/ML 2 ML VIAL ONE (15:02)
[2020-12-05] MEDS ORDERED: NEOSTIGMINE 1 MG/ML 10 ML VIAL ONE (15:02)
[2020-12-05] MEDS ORDERED: ROCURONIUM 10 MG/ML (5 ML VIAL) IV ONE (15:02)
[2020-12-05] MEDS ORDERED: IOHEXOL 350 MG/ML 50 ML in EMPTY BAG 1 BAG IRRIGATION ONE (15:38)
[2020-12-05 16:28] VITALS: TEMP 98.2
--- NOTE | 2020-12-05 16:31 | P.OP ---
Date of Procedure: 12/05/20 Preoperative Diagnosis: Left ureteral stone Postoperative Diagnosis: Same Procedure(s) Performed: Left ureteroscopy, holmium laser lithotripsy, stone basketing, retrograde pyelogram and stent insertion Implants: 6-Omani by 24 cm stent in the left ureter left on a string Anesthesia: ARLETTE Surgeon: Parminder Santiago Estimated Blood Loss (ml): 2 Pathology: other (left ureteral stone) Condition: stable Disposition: PACU Indications for Procedure: This is a 75-year-old female with history of 7 mm left-sided proximal stone. She is symptomatic from her stone. Of note stone is radiolucent. Discussed with her the option of ureteroscopy. Discussed with her the risk which includes but not limited to bleeding, infection, injury to the ureter. Discussed also risk from anesthesia. She understood all the risk and agreed to proceed Operative Findings: Left proximal ureteral stone, an additional stone within the lower calyx Description of Procedure: Patient was brought to the operating room, general anesthesia was induced. She was prepped and draped in sterile fashion and placed in dorsal lithotomy position. Cystoscopy fitted with a 21-Omani sheath was inserted per urethra, cystoscopy was performed which showed no abnormality within the bladder. Attention was then carried to the left ureteral orifice which was intubated with an open-ended catheter, retrograde pyelogram was performed which showed a filling defect within the proximal ureter with hydronephrosis. Next a sensor wire was advanced through the catheter and the catheter was removed with the wire in place. Under fluoroscopy 1113 O[place]i access sheath was passed into the proximal ureter. Next a flexible ureteroscope was inserted through the access sheath, large stone was encountered in the proximal ureter. Using the holmium laser the stone was fragmented into small fragments, sizable fragments were removed using the stone basket. Next the flexibile ureteroscope was advanced into the kidney, and additional stone was seen in the lower calyx which was dusted. Of note the most lower calyx could not be visualized given the acute angle of the calyx. Repeat renoscopy showed no additional stones or injury to the kidney. Pullback ureteroscopy was performed showed no sizable fragments or injury to the ureter. as the ureteroscope was withdrawn a sensor wire was advanced through. Next a ureteral stent was passed over the wire, the proximal curl was visualized on fluoroscopy and the distal curl was visualized using the cystoscope. The stent was left on a string and taped to the patient's left thigh. The bladder was emptied at the end of the case. Patient tolerated the procedure well was taken to PACU in stable condition
[2020-12-05] MEDS ORDERED: hydrALAZINE HCL 20 MG/ML 1 ML VIAL IVP ONE (16:49)
[2020-12-05] MEDS ORDERED: hydrALAZINE HCL 20 MG/ML 1 ML VIAL ONE (16:51)
[2020-12-05 17:18] VITALS: RESP 16
[2020-12-05 18:35] VITALS: BP 141/74; PULSE 67
--- NOTE | 2020-12-06 10:01 | FL ---
EXAMINATION TYPE: FL urography retrograde DATE OF EXAM: 12/05/2020 COMPARISON: NONE HISTORY: Fluoroscopy time. Fluoroscopy was provided to the referring clinician.
== END 2020-12-05 18:42 | disposition home or self-care (01) ==
LOC: OR 13:07
PROVIDERS: ATTEND Urology
DX: N20.1 Calculus of ureter (principal)
CPT/HCPCS: 52356; 82365; 74420; C2625; C1758; C1769; J2250; J0360; J1100; J2710; J0690; J2405; J2001; J3010; J0330; J2704; Q9967

== ENCOUNTER 2020-12-14 15:42 | Emergency (ER) | payer MEDICARE ==
[2020-12-14] MEDS ORDERED: SODIUM CHLORIDE 0.9% 1,000 ML IV STA (18:14)
[2020-12-14] MEDS ORDERED: ACETAMINOPHEN TAB 500 MG TAB PO STA (18:15)
[2020-12-14 18:53] LABS: Basophils % (A) 0 %; Eosinophils # (A) 0.1 k/uL (0-0.7); Eosinophils % (A) 1 %; HCT 34.5 % (34.0-46.0); HGB 10.7 gm/dL (11.4-16.0); Lymphocytes # (A) 0.7 k/uL (1.0-4.8); Lymphocytes % (A) 6 %; MCH 28.9 pg (25.0-35.0); MCHC 31.1 g/dL (31.0-37.0); MCV 92.8 fL (80.0-100.0); Mean Platelet Volume 8.1; Monocytes # (A) 0.5 k/uL (0-1.0); Monocytes % (A) 5 %; Neutrophils # (A) 9.8 k/uL (1.3-7.7); Neutrophils % (A) 87 %; Platelet Count 204 k/uL (150-450); RBC 3.71 m/uL (3.80-5.40); RDW 13.5 % (11.5-15.5); WBC 11.2 k/uL (3.8-10.6)
[2020-12-14 19:00] LABS: Appearance,Urine Cloudy (Clear); Bilirubin,Urine Negative (Negative); Blood,Urine Trace (Negative); Color,Urine Yellow; Glucose,Urine (UA) Negative (Negative); Ketones,Urine Negative (Negative); Leukocyte Esterase,Urine Moderate (Negative); Mucus,Urine Rare /hpf; Nitrite,Urine Negative (Negative); Protein,Urine Trace (Negative); RBC,Urine 2 /hpf (0-5); Specific Gravity,Urine 1.012 (1.001-1.035); Squamous Epithelial Cell,Urine 1 /hpf (0-4); Urobilinogen,Urine <2.0 mg/dL (<2.0); WBC,Urine 25 /hpf (0-5)
[2020-12-14 19:16] LABS: Albumin 3.4 g/dL (3.5-5.0); Calcium 8.7 mg/dL (8.4-10.2); Potassium 4.2 mmol/L (3.5-5.1); Total Bilirubin 1.1 mg/dL (0.2-1.3); Total Protein 6.4 g/dL (6.3-8.2)
--- NOTE | 2020-12-14 19:20 | XR ---
EXAMINATION TYPE: XR KUB DATE OF EXAM: 12/14/2020 COMPARISON: 11/30/2020 HISTORY: Abdominal pain. Fever. TECHNIQUE: 2 views upright FINDINGS: Bowel gas pattern is normal. There is no sign of intestinal obstruction or pneumoperitoneum . Fecal pattern is normal. Lung bases appear clear of consolidation. There are no pathologic calcific ations. IMPRESSION: Nonacute abdomen. No change.
[2020-12-14 19:21] LABS: INR 1.1 (<1.2); Prothrombin Time 11.3 sec (9.0-12.0)
--- NOTE | 2020-12-14 20:48 | ED ---
General Adult HPI - General Chief complaint: Abdominal Pain Stated complaint: Fever, had surgery 1 1/2 ago, UTI Time Seen by Provider: 12/14/20 18:02 Source: patient, RN notes reviewed, old records reviewed Mode of arrival: wheelchair Limitations: no limitations - History of Present Illness Initial comments: 75-year-old female presenting with fever. Patient had recent stents for obstructive uropathy. Stent has been removed. She's had fever and chills over the past 2 or 3 days. She was on antibiotics, oral Keflex. She contacted her urologist who recommended she present to the emergency department for evaluation. She denies significant flank pain. Denies vomiting. She denies cough or URI symptoms. - Related Data Home Medications Medication Instructions Recorded Confirmed Atorvastatin Calcium [Lipitor] 20 mg PO DAILY 12/25/16 12/02/20 Cholecalciferol (Vitamin D3) 2,000 unit PO DAILY 12/25/16 12/02/20 [Vitamin D3] Ferrous Sulfate [Feosol] 325 mg PO DAILY 12/25/16 12/02/20 Losartan/Hydrochlorothiazide 1 tab PO DAILY 12/25/16 12/02/20 [Hyzaar 100-25 Tablet] Pioglitazone [Actos] 30 mg PO DAILY 12/25/16 12/02/20 Rivaroxaban [Xarelto] 10 mg PO DAILY 12/25/16 12/02/20 glipiZIDE [Glucotrol XL] 2.5 mg PO DAILY 12/25/16 12/02/20 metFORMIN HCL [Glucophage] 1,000 mg PO DAILY 12/25/16 12/02/20 Thiamine [Vitamin B-1] 50 mg PO DAILY 09/09/17 12/02/20 Turmeric Root Extract [Turmeric] 500 mg PO DAILY 12/02/20 12/02/20 Acetaminophen [Tylenol] 1,000 mg PO ONCE PRN 12/05/20 12/05/20 Previous Rx's Medication Instructions Recorded Ondansetron Odt [Zofran Odt] 4 mg PO Q8HR PRN #14 tab 06/09/19 Ketorolac [Toradol] 10 mg PO Q6HR #15 tab 11/30/20 Tamsulosin [Flomax] 0.4 mg PO DAILY #10 cap 11/30/20 Cephalexin [Keflex] 500 mg PO Q12HR 1 Days #6 cap 12/05/20 Ketorolac [Toradol] 10 mg PO Q6HR #15 tab 12/05/20 Sulfamethox-Tmp 800-160Mg [Bactrim 1 tab PO Q12HR 10 Days #20 tab 12/14/20 DS 800-160 mg] Allergies Allergy/AdvReac Type Severity Reaction Status Date / Time mycin antibiotics Allergy Rash/Hives Uncoded 12/14/20 16:50 Review of Systems ROS Statement: Those systems with pertinent positive or pertinent negative responses have been documented in the HPI. ROS Other: All systems not noted in ROS Statement are negative. Past Medical History Past Medical History: Cancer, Diabetes Mellitus, Hyperlipidemia, Hypertension Additional Past Medical History / Comment(s): loose bowel movement,colon CA 12-16-15-Chemo/no radiation, hx kidney stones History of Any Multi-Drug Resistant Organisms: None Reported Past Surgical History: Back Surgery, Bowel Resection, Section, Orthopedic Surgery Additional Past Surgical History / Comment(s): achilles tendon Past Anesthesia/Blood Transfusion Reactions: No Reported Reaction Past Psychological History: No Psychological Hx Reported Smoking Status: Never smoker Past Alcohol Use History: None Reported Past Drug Use History: None Reported - Past Family History Mother Family Medical History: No Reported History Father Family Medical History: Myocardial Infarction ([place]) Sister(s) Additional Family Medical History / Comment(s): heart valve problems General Exam Limitations: no limitations General appearance: alert, in no apparent distress Head exam: Present: atraumatic, normocephalic Eye exam: Present: normal appearance, PERRL ENT exam: Present: normal exam Neck exam: Present: normal inspection. Absent: tenderness, meningismus Respiratory exam: Present: normal lung sounds bilaterally. Absent: respiratory distress, wheezes Cardiovascular Exam: Present: regular rate, normal rhythm GI/Abdominal exam: Present: soft. Absent: distended, tenderness, guarding Extremities exam: Present: normal inspection, normal capillary refill. Absent: pedal edema Back exam: Present: normal inspection. Absent: CVA tenderness (R), CVA tenderness (L) Neurological exam: Present: alert, oriented X3, CN II-XII intact. Absent: motor sensory deficit Psychiatric exam: Present: normal affect, normal mood Skin exam: Present: warm, dry, intact. Absent: cyanosis, diaphoretic Course Vital Signs 12/14/20 12/14/20 12/14/20 16:47 18:41 21:06 Temperature 98.9 F 100.5 F H 99.0 F Pulse Rate 67 62 Respiratory 20 18 16 Rate Blood Pressure 191/72 133/54 O2 Sat by Pulse 98 95 Oximetry Medical Decision Making - Medical Decision Making Workup initiated, patient with low-grade fever, chills, recent urological procedure. She has mild leukocytosis at 11. She has a normal lactic acid, normal electrolytes, urinalysis showing 25 white cells, no bacteria. Patient is currently on Keflex 3 times daily. I did perform CT which shows improved hydronephrosis, no other infectious etiology. I discussed case with Dr. Melinda stoll for urology. We both agree the patient is stable for discharge at this time. She should continue to follow up as an outpatient. Urine culture both from today and previous stroke culture from yesterday are pending. She should should continue the Keflex and additionally Bactrim will be added to ensure coverage. Return parameters discussed. - Lab Data Result diagrams: 12/14/20 18:23 12/14/20 18:23 Lab Results 12/14/20 12/14/20 12/14/20 Range/Units 18:23 18:23 18:23 WBC 11.2 H (3.8-10.6) k/uL RBC 3.71 L (3.80-5.40) m/uL Hgb 10.7 L (11.4-16.0) gm/dL Hct 34.5 (34.0-46.0) % MCV 92.8 (80.0-100.0) fL MCH 28.9 (25.0-35.0) pg MCHC 31.1 (31.0-37.0) g/dL RDW 13.5 (11.5-15.5) % Plt Count 204 (150-450) k/uL MPV 8.1 Neutrophils % 87 % Lymphocytes % 6 % Monocytes % 5 % Eosinophils % 1 % Basophils % 0 % Neutrophils # 9.8 H (1.3-7.7) k/uL Lymphocytes # 0.7 L (1.0-4.8) k/uL Monocytes # 0.5 (0-1.0) k/uL Eosinophils # 0.1 (0-0.7) k/uL Basophils # 0.0 (0-0.2) k/uL PT 11.3 (9.0-12.0) sec INR 1.1 (<1.2) APTT 31.0 H (22.0-30.0) sec Sodium (137-145) mmol/L Potassium (3.5-5.1) mmol/L Chloride (98-107) mmol/L Carbon Dioxide (22-30) mmol/L Anion Gap mmol/L BUN (7-17) mg/dL Creatinine (0.52-1.04) mg/dL Est GFR (CKD-EPI)AfAm (>60 ml/min/1.73 sqM) Est GFR (CKD-EPI)NonAf (>60 ml/min/1.73 sqM) Glucose (74-99) mg/dL Plasma Lactic Acid Nir (0.7-2.0) mmol/L Calcium (8.4-10.2) mg/dL Total Bilirubin (0.2-1.3) mg/dL AST (14-36) U/L ALT (4-34) U/L Alkaline Phosphatase (38-126) U/L Total Protein (6.3-8.2) g/dL Albumin (3.5-5.0) g/dL Urine Color Yellow Urine Appearance Cloudy H (Clear) Urine pH 5.0 (5.0-8.0) Ur Specific Anna 1.012 (1.001-1.035) Urine Protein Trace H (Negative) Urine Glucose (UA) Negative (Negative) Urine Ketones Negative (Negative) Urine Blood Trace H (Negative) Urine Nitrite Negative (Negative) Urine Bilirubin Negative (Negative) Urine Urobilinogen <2.0 (<2.0) mg/dL Ur Leukocyte Esterase Moderate H (Negative) Urine RBC 2 (0-5) /hpf Urine WBC 25 H (0-5) /hpf Ur Squamous Epith Cells 1 (0-4) /hpf Urine Mucus Rare H (None) /hpf Coronavirus (PCR) (Not Detectd) 12/14/20 12/14/20 12/14/20 Range/Units 18:23 18:23 19:47 WBC (3.8-10.6) k/uL RBC (3.80-5.40) m/uL Hgb (11.4-16.0) gm/dL Hct (34.0-46.0) % MCV (80.0-100.0) fL MCH (25.0-35.0) pg MCHC (31.0-37.0) g/dL RDW (11.5-15.5) % Plt Count (150-450) k/uL MPV Neutrophils % % Lymphocytes % % Monocytes % % Eosinophils % % Basophils % % Neutrophils # (1.3-7.7) k/uL Lymphocytes # (1.0-4.8) k/uL Monocytes # (0-1.0) k/uL Eosinophils # (0-0.7) k/uL Basophils # (0-0.2) k/uL PT (9.0-12.0) sec INR (<1.2) APTT (22.0-30.0) sec Sodium 135 L (137-145) mmol/L Potassium 4.2 (3.5-5.1) mmol/L Chloride 105 (98-107) mmol/L Carbon Dioxide 20 L (22-30) mmol/L Anion Gap 10 mmol/L BUN 29 H (7-17) mg/dL Creatinine 1.24 H (0.52-1.04) mg/dL Est GFR (CKD-EPI)AfAm 49 (>60 ml/min/1.73 sqM) Est GFR (CKD-EPI)NonAf 42 (>60 ml/min/1.73 sqM) Glucose 145 H (74-99) mg/dL Plasma Lactic Acid Nir 1.1 (0.7-2.0) mmol/L Calcium 8.7 (8.4-10.2) mg/dL Total Bilirubin 1.1 (0.2-1.3) mg/dL AST 38 H (14-36) U/L ALT 58 H (4-34) U/L Alkaline Phosphatase 97 (38-126) U/L Total Protein 6.4 (6.3-8.2) g/dL Albumin 3.4 L (3.5-5.0) g/dL Urine Color Urine Appearance (Clear) Urine pH (5.0-8.0) Ur Specific Anna (1.001-1.035) Urine Protein (Negative) Urine Glucose (UA) (Negative) Urine Ketones (Negative) Urine Blood (Negative) Urine Nitrite (Negative) Urine Bilirubin (Negative) Urine Urobilinogen (<2.0) mg/dL Ur Leukocyte Esterase (Negative) Urine RBC (0-5) /hpf Urine WBC (0-5) /hpf Ur Squamous Epith Cells (0-4) /hpf Urine Mucus (None) /hpf Coronavirus (PCR) Not Detected (Not Detectd) Disposition Clinical Impression: UTI (urinary tract infection) Disposition: HOME SELF-CARE Condition: Fair Instructions (If sedation given, give patient instructions): Urinary Tract Infection in Women (ED) Prescriptions: Sulfamethox-Tmp 800-160Mg [Bactrim DS 800-160 mg] 1 tab PO Q12HR 10 Days #20 tab Is patient prescribed a controlled substance at d/c from ED?: No Referrals: Jose A Singh MD [Primary Care Provider] - 1-2 days Parminder Santiago MD [STAFF PHYSICIAN] - 1-2 days Time of Disposition: 21:13
--- NOTE | 2020-12-14 20:54 | CT ---
EXAMINATION TYPE: CT abdomen pelvis wo con DATE OF EXAM: 12/14/2020 COMPARISON: 11/30/2020 HISTORY: fever, flank pain, recent kideny infection CT DLP: 1869 mGycm Automated exposure control for dose reduction was used. Images obtained without contrast from the diaphragm to the floor the pelvis. There is some mild atelectasis at the lung bases. Heart is borderline enlarged. There is no pericardi al effusion. Liver spleen stomach pancreas appear intact. The bile ducts are not dilated. There are m ultiple small calcified gallstones. There is no adrenal mass. Kidneys have fairly normal size. There is mild left-sided hydronephrosis. T here are small left renal calculi. I see no definite ureteral calculus. There is no retroperitoneal a denopathy. There is no evidence of a bladder mass. There is no inguinal hernia. There is no free flui d in the pelvis. Uterus is anteverted. Lumbar vertebra have normal alignment. There is no compression fracture. Bony pelvis is intact. There is no mesenteric edema. There is no ascites or free air. There is no bowel obstruction. IMPRESSION: Mild left-sided hydronephrosis. There is clearing of the calculus at the left ureteral pelvic junctio n compared to old exam. Hydronephrosis improved compared to old exam.
[2020-12-14 21:07] VITALS: BP 133/54; PULSE 62; RESP 16; TEMP 99
[2020-12-14] MEDS ORDERED: SULFAMETHOX-TMP 800-160MG 1 EACH TAB PO STA (21:11)
== END 2020-12-14 22:01 | disposition home or self-care (01) ==
LOC: EC 15:42
DX: N39.0 Urinary tract infection, site not specified (principal); I10 Essential (primary) hypertension; E11.9 Type 2 diabetes mellitus without complications; E78.5 Hyperlipidemia, unspecified; Z20.822 Contact with and (suspected) exposure to COVID-19; Z79.84 Long term (current) use of oral hypoglycemic drugs; Z88.1 Allergy status to other antibiotic agents; Z85.038 Personal history of other malignant neoplasm of large intestine; Z87.442 Personal history of urinary calculi; Z79.899 Other long term (current) drug therapy
CPT/HCPCS: 36415; 74018; 74176; 80053; 81001; 83605; 85025; 85610; 85730; 87040; 87086; 87635; 96360; 99284

== ENCOUNTER 2021-02-28 06:21 | Day surgery (SDC) | payer MEDICARE ==
[2021-02-23 13:14] VITALS: BMI 51.2
[~2021-02-28 06:21] MED LIST: LACTATED RINGERS 1,000 ML IV SCH; LIDOCAINE 1% (10MG/ML) FOR IV START INTRADERMA PRN
[2021-02-28 07:09] VITALS: RESP 18; TEMP 97.9
[2021-02-28] MEDS ORDERED: PROPOFOL 10 MG/ML 20 ML VIAL IV ONE (07:11)
[2021-02-28 07:14] LABS: Glucose,Whole Blood 127 mg/dL (75-99)
--- NOTE | 2021-02-28 07:27 | P.PCN ---
Date of Procedure: 02/28/21 Procedure(s) Performed: BRIEF HISTORY: Patient is a 75-year-old pleasant white female scheduled for a colonoscopy as a part of surveillance of history of colon cancer diagnosed in 2017. She underwent right hemicolectomy. She is scheduled scheduled for an elective colonoscopy as a part of colon cancer. PROCEDURE PERFORMED: Colonoscopy. PREOPERATIVE DIAGNOSIS: History of colon cancer. IV sedation per Anesthesia. PROCEDURE: After informed consent was obtained, the patient, was brought into the endoscopy unit. IV sedation was administered by Anesthesia under continuous monitoring. Digital rectal examination was normal. Initially the Olympus CF-160 flexible video colonoscope was then inserted in the rectum, gradually advanced into the right colon with ileocolonic anastomosis was visualized and appeared normal. Prep was excellent. Because of the ascending colon, transverse colon, descending colon, sigmoid colon, and rectum appeared normal. Scattered sigmoid diverticulosis seen. Retroflexion was performed in the rectum and no lesions were seen. The patient tolerated the procedure well. IMPRESSION: Normal-appearing colon from rectum to the liquid anastomosis in the right colon with no evidence of colorectal neoplasia Scattered left sided diverticulosis RECOMMENDATIONS: Findings of this examination were discussed with the patient as well as a family. She was advised to have a repeat surveillance colonoscopy in 3 years from now because of the prior history of colon cancer.
[2021-02-28 07:51] VITALS: BP 133/59; PULSE 57
== END 2021-02-28 08:03 | disposition home or self-care (01) ==
LOC: ORWHC2ENDO 06:21
PROVIDERS: ATTEND Internal Medicine Gastroenterology
DX: Z12.11 Encounter for screening for malignant neoplasm of colon (principal); K57.30 Diverticulosis of large intestine without perforation or abscess without bleeding; Z85.038 Personal history of other malignant neoplasm of large intestine; Z90.49 Acquired absence of other specified parts of digestive tract; Z98.0 Intestinal bypass and anastomosis status; I10 Essential (primary) hypertension; E78.5 Hyperlipidemia, unspecified; G47.33 Obstructive sleep apnea (adult) (pediatric); E11.9 Type 2 diabetes mellitus without complications; Z88.1 Allergy status to other antibiotic agents; Z86.718 Personal history of other venous thrombosis and embolism; Z79.01 Long term (current) use of anticoagulants; Z79.84 Long term (current) use of oral hypoglycemic drugs; Z79.899 Other long term (current) drug therapy; Z97.2 Presence of dental prosthetic device (complete) (partial)
CPT/HCPCS: J2704; G0105; 45378

== ENCOUNTER 2024-05-26 07:49 | Day surgery (SDC) | payer MEDICARE ==
[2024-05-22 11:15] VITALS: BMI 49.4
[2024-05-26 08:18] VITALS: TEMP 98.1
[2024-05-26] MEDS: LACTATED RINGERS 1,000 ML IV SCH (08:33)
[2024-05-26 08:34] LABS: Glucose,Whole Blood 193 mg/dL (70-110)
[2024-05-26] MEDS: IV FLUID CONTINUATION 1,000 ML IV ONE (08:35)
[2024-05-26] MEDS ORDERED: PROPOFOL 10 MG/ML 20 ML VIAL IV ONE (08:43)
--- NOTE | 2024-05-26 08:57 | P.PCN ---
Date of Procedure: 05/26/24 Procedure(s) Performed: BRIEF HISTORY: Patient is a 78-year-old pleasant white female scheduled for an elective colonoscopy as a part of screening for personal history of colon cancer. She was diagnosed with colon cancer 9 years ago and is status post right hemicolectomy. Last colonoscopy was 3 years ago and was unremarkable. PROCEDURE PERFORMED: Colonoscopy. PREOPERATIVE DIAGNOSIS: Screening for personal history of colon cancer. IV sedation per Anesthesia. PROCEDURE: After informed consent was obtained, the patient, was brought into the endoscopy unit. IV sedation was administered by Anesthesia under continuous monitoring. Digital rectal examination was normal. Initially the Olympus CF-160 flexible video colonoscope was then inserted in the rectum, gradually advanced into the right colon without any difficulty. Careful examination was performed as the scope was gradually being withdrawn. Colic anastomosis appeared normal. Mucosa, ascending colon, transverse colon, descending colon, sigmoid colon, and rectum appeared normal. Retroflexion was performed in the rectum and no lesions were seen. Scattered diverticulosis seen. The patient tolerated the procedure well. IMPRESSION: Normal-appearing colon from rectum to right colon with normal-appearing and ileocolic anastomosis Scattered diverticulosis. RECOMMENDATIONS: Findings of this examination were discussed with the patient as well as her family. She was advised to have repeat screening colonoscopy in 3 years because of personal history of colon cancer.
[2024-05-26 09:02] VITALS: PULSE 53
[2024-05-26 09:26] VITALS: BP 139/72; RESP 14
== END 2024-05-26 09:41 | disposition home or self-care (01) ==
LOC: ORWHC2ENDO 07:49
PROVIDERS: ATTEND Internal Medicine Gastroenterology
DX: Z12.11 Encounter for screening for malignant neoplasm of colon (principal); Z80.0 Family history of malignant neoplasm of digestive organs; K57.30 Diverticulosis of large intestine without perforation or abscess without bleeding; Z85.038 Personal history of other malignant neoplasm of large intestine
CPT/HCPCS: J2704; G0105